=== PATIENT | male | born 1940 | race Caucasian/White ===

== ENCOUNTER 2016-05-09 13:17 | Outpatient (CLI) | payer MEDICARE, OTHER | END 2016-05-09 13:18 | disposition home or self-care (01) | DX: E16.1 Other hypoglycemia (principal) ==

== ENCOUNTER 2016-06-21 13:27 | Outpatient (CLI) | payer MEDICARE, OTHER | END 2016-06-21 23:59 | DX: R39.15 Urgency of urination (principal); R31.9 Hematuria, unspecified ==

== ENCOUNTER 2016-07-26 15:24 | Outpatient (CLI) | payer MEDICARE, OTHER | END 2016-07-26 15:25 | disposition critical access hospital (66) | LOC: EMS 15:24 | PROVIDERS: ATTEND Surgery | DX: S09.90XA Unspecified injury of head, initial encounter (principal); W18.12XA Fall from or off toilet with subsequent striking against object, initial encounter; Y93.E9 Activity, other interior property and clothing maintenance; Y92.002 Bathroom of unspecified non-institutional (private) residence as the place of occurrence of the external cause | CPT/HCPCS: A0425; A0427 ==

== ENCOUNTER 2016-07-26 15:39 | Emergency (ER) | payer MEDICARE, OTHER ==
[2016-07-26] MEDS ORDERED: ONDANSETRON 4 MG/2 ML VIAL ONE (15:57)
[2016-07-26] MEDS ORDERED: ONDANSETRON 4 MG/2 ML VIAL IVP STA (16:01)
[2016-07-26] MEDS ORDERED: ACETAMINOPHEN 325 MG TABLET PO STA (16:01)
[2016-07-26] MEDS ORDERED: ACETAMINOPHEN 325 MG TABLET PO ONE (16:02)
== END 2016-07-26 17:26 | disposition home or self-care (01) ==
DX: S09.90XA Unspecified injury of head, initial encounter (principal); W18.11XA Fall from or off toilet without subsequent striking against object, initial encounter; Y92.012 Bathroom of single-family (private) house as the place of occurrence of the external cause; E04.1 Nontoxic single thyroid nodule; I10 Essential (primary) hypertension; E78.00 Pure hypercholesterolemia, unspecified; I25.119 Atherosclerotic heart disease of native coronary artery with unspecified angina pectoris; Z95.1 Presence of aortocoronary bypass graft; I25.2 Old myocardial infarction; N40.0 Benign prostatic hyperplasia without lower urinary tract symptoms; K21.9 Gastro-esophageal reflux disease without esophagitis; Z79.82 Long term (current) use of aspirin
CPT/HCPCS: 70450; 72125; 96374; 99283; 99284; A9270

== ENCOUNTER 2016-10-04 14:35 | Outpatient (CLI) | payer MEDICARE, OTHER | END 2016-10-04 14:36 | disposition home or self-care (01) | LOC: LAB.WCP 14:35 | PROVIDERS: ATTEND Family Medicine | DX: E04.1 Nontoxic single thyroid nodule (principal) | CPT/HCPCS: 36415; 84443 ==

== ENCOUNTER 2016-10-06 14:31 | Outpatient (CLI) | payer MEDICARE, OTHER ==
--- NOTE | 2016-10-07 09:35 | Ultrasound Report ---
THYROID ULTRASOUND: 10/06/2016 CLINICAL INDICATION: Thyroid nodule on CT cervical spine. TECHNIQUE: Real-time scanning was performed with front office representative static images obtained. The right lobe measures 5.4 x 1.8 x 1.4 cm, and the left lobe measures 4.4 x 2.2 x 1.9 cm. The isthm us measures 3 mm. In the left lobe, there is a partially cystic nodule within avascular septations. No sonographically suspicious findings are appreciated. The cystic nodule measures 1.7 x 1.2 x 1.1 cm. By WOLFGANG criteria, it is a very low suspicion nodule, and fine needle aspiration is not recommende d at this size. No adenopathy is seen. IMPRESSION: PREDOMINANTLY CYSTIC NODULE IN THE LEFT LOBE OF THE THYROID, VERY LOW SUSPICION BY WOLFGANG Yue HOWARD. FINE NEEDLE ASPIRATION IS NOT RECOMMENDED PER WOLFGANG GUIDELINES. JOB #: [id number] EXT JOB #:[id number]
== END 2016-10-06 14:32 | disposition home or self-care (01) ==
LOC: DI 14:31
PROVIDERS: ATTEND Family Medicine
DX: E04.1 Nontoxic single thyroid nodule (principal)
CPT/HCPCS: 76536

== ENCOUNTER 2017-02-19 09:23 | Outpatient (CLI) | payer MEDICARE, OTHER | END 2017-02-19 09:24 | disposition home or self-care (01) | LOC: SC 09:23 | PROVIDERS: ATTEND Internal Medicine Pulmonary Disease | DX: G47.33 Obstructive sleep apnea (adult) (pediatric) (principal) | CPT/HCPCS: 99213; G0463; 99212 ==

== ENCOUNTER 2018-01-03 09:34 | Outpatient (CLI) | payer MEDICARE, OTHER ==
[2018-01-03 12:28] LABS: BASOPHILS % (AUTO) 0.5 %; EOSINOPHILS # (AUTO) 0.4 10^3/uL (0.0-0.7); EOSINOPHILS % (AUTO) 5.7 %; HGB - HEMOGLOBIN 15.8 g/dL (14.0-18.0); LYMPHOCYTES # (AUTO) 1.4 10^3/uL (1.5-3.5); LYMPHOCYTES % (AUTO) 19.7 %; MEAN CORPUSCULAR HEMOGLOBIN 33.5 pg (27.0-31.0); MEAN CORPUSCULAR HGB CONC 34.9 g/dL (32.0-36.0); MEAN CORPUSCULAR VOLUME 96.2 fL (80.0-94.0); MEAN PLATELET VOLUME 8.6 fL (7.4-11.4); MONOCYTES # (AUTO) 0.9 10^3/uL (0.0-1.0); MONOCYTES % (AUTO) 12.3 %; NEUTROPHILS # (AUTO) 4.3 10^3/uL (1.5-6.6); NEUTROPHILS % (AUTO) 61.8 %; PLT - PLATELET COUNT 143 10^3/uL (130-450); RED BLOOD COUNT 4.72 10^6/uL (4.70-6.10); RED CELL DISTRIBUTION WIDTH 13.7 % (12.0-15.0)
[2018-01-03 12:48] LABS: ALBUMIN 4.4 g/dL (3.2-5.5); ALBUMIN/GLOBULIN RATIO 1.8 (1.0-2.2); ALKALINE PHOSPHATASE 58 IU/L (42-121); ALT ALANINE AMINOTRANSFERASE 28 IU/L (10-60); AST ASPARTATE AMINOTRANSFERASE 35 IU/L (10-42); BILIRUBIN,TOTAL 0.7 mg/dL (0.2-1.0); BUN - BLOOD UREA NITROGEN 10 mg/dL (6-20); CARBON DIOXIDE - CO2 26 mmol/L (21-32); CHLORIDE 100 mmol/L (101-111); CHOL/HDL RATIO 3.7 (<5.0); CHOLESTEROL 131 mg/dL; GFR - MDRD 72 (>89); GLUCOSE 93 mg/dL (70-100); HDL CHOLESTEROL 35 mg/dL; LDL CHOLESTEROL,CALCULATED 64 mg/dL; LDL/HDL RATIO 1.8 (<3.6); SODIUM 135 mmol/L (135-145); TOTAL PROTEIN 6.9 g/dL (6.7-8.2); VLDL CHOLESTEROL 32 mg/dL
== END 2018-01-03 09:35 | disposition home or self-care (01) ==
LOC: LAB.WCP 09:34
PROVIDERS: ATTEND Family Medicine
DX: D64.9 Anemia, unspecified (principal); I25.10 Atherosclerotic heart disease of native coronary artery without angina pectoris
CPT/HCPCS: 36415; 80053; 80061; 83721; 84443; 85025

== ENCOUNTER → 2018-01-08 | Outpatient (CLI) | payer MEDICARE, OTHER ==
[2018-01-08 12:43] LABS: BASOPHILS % (AUTO) 0.3 %; EOSINOPHILS # (AUTO) 0.4 10^3/uL (0.0-0.7); EOSINOPHILS % (AUTO) 5.2 %; HGB - HEMOGLOBIN 15.8 g/dL (14.0-18.0); LYMPHOCYTES # (AUTO) 1.5 10^3/uL (1.5-3.5); LYMPHOCYTES % (AUTO) 19.8 %; MEAN CORPUSCULAR HEMOGLOBIN 33.5 pg (27.0-31.0); MEAN CORPUSCULAR HGB CONC 34.8 g/dL (32.0-36.0); MEAN CORPUSCULAR VOLUME 96.3 fL (80.0-94.0); MEAN PLATELET VOLUME 8.5 fL (7.4-11.4); MONOCYTES # (AUTO) 0.5 10^3/uL (0.0-1.0); MONOCYTES % (AUTO) 6.8 %; NEUTROPHILS % (AUTO) 67.9 %; PLT - PLATELET COUNT 143 10^3/uL (130-450); RED BLOOD COUNT 4.72 10^6/uL (4.70-6.10); RED CELL DISTRIBUTION WIDTH 13.6 % (12.0-15.0); WHITE BLOOD COUNT 7.4 x10^3/uL (4.8-10.8)
[2018-01-08 13:01] LABS: ALBUMIN 4.4 g/dL (3.2-5.5); ALBUMIN/GLOBULIN RATIO 1.8 (1.0-2.2); ALKALINE PHOSPHATASE 59 IU/L (42-121); ALT ALANINE AMINOTRANSFERASE 29 IU/L (10-60); AST ASPARTATE AMINOTRANSFERASE 33 IU/L (10-42); BILIRUBIN,TOTAL 0.8 mg/dL (0.2-1.0); BUN - BLOOD UREA NITROGEN 11 mg/dL (6-20); CALCIUM 9.3 mg/dL (8.5-10.3); CARBON DIOXIDE - CO2 28 mmol/L (21-32); CHLORIDE 98 mmol/L (101-111); CREATININE 0.9 mg/dL (0.6-1.2); GFR - MDRD 81 (>89); GLUCOSE 144 mg/dL (70-100); PREALBUMIN 25 mg/dL (18-45); SODIUM 135 mmol/L (135-145); TOTAL PROTEIN 6.9 g/dL (6.7-8.2)
[2018-01-08 13:09] LABS: CRP - C-REACTIVE PROTEIN < 1.0 mg/dL (0-1.0)
== END ==
LOC: LAB.WCP 08:00
PROVIDERS: ATTEND Family Medicine
DX: L08.89 Other specified local infections of the skin and subcutaneous tissue (principal); L03.116 Cellulitis of left lower limb; L97.322 Non-pressure chronic ulcer of left ankle with fat layer exposed
CPT/HCPCS: 36415; 80053; 84134; 85025; 85651; 86140

== ENCOUNTER 2018-04-01 10:42 | Outpatient (CLI) | payer MEDICARE, OTHER | END 2018-04-01 10:43 | disposition home or self-care (01) | LOC: SC 10:42 | PROVIDERS: ATTEND Nurse Practitioner Family | DX: G47.33 Obstructive sleep apnea (adult) (pediatric) (principal) | CPT/HCPCS: 99214; G0463; 99212 ==

== ENCOUNTER 2018-05-15 15:06 | Outpatient (CLI) | payer MEDICARE, OTHER | END 2018-05-15 15:07 | disposition EMS.NT | LOC: EMS 15:06 | PROVIDERS: ATTEND Surgery | DX: Z03.89 Encounter for observation for other suspected diseases and conditions ruled out (principal) ==

== ENCOUNTER 2018-06-06 19:05 | Observation (INO) | payer MEDICARE, OTHER ==
[2018-06-06 19:35] LABS: BASOPHILS # (AUTO) 0.1 10^3/uL (0.0-0.1); BASOPHILS % (AUTO) 0.8 %; EOSINOPHILS # (AUTO) 0.3 10^3/uL (0.0-0.7); EOSINOPHILS % (AUTO) 4.5 %; HGB - HEMOGLOBIN 15.1 g/dL (14.0-18.0); LYMPHOCYTES # (AUTO) 1.8 10^3/uL (1.5-3.5); LYMPHOCYTES % (AUTO) 23.8 %; MEAN CORPUSCULAR HEMOGLOBIN 33.4 pg (27.0-31.0); MEAN CORPUSCULAR HGB CONC 35.2 g/dL (32.0-36.0); MEAN PLATELET VOLUME 7.5 fL (7.4-11.4); MONOCYTES # (AUTO) 0.9 10^3/uL (0.0-1.0); MONOCYTES % (AUTO) 11.9 %; NEUTROPHILS # (AUTO) 4.5 10^3/uL (1.5-6.6); PLT - PLATELET COUNT 182 10^3/uL (130-450); RED BLOOD COUNT 4.52 10^6/uL (4.70-6.10); RED CELL DISTRIBUTION WIDTH 13.8 % (12.0-15.0); WHITE BLOOD COUNT 7.6 x10^3/uL (4.8-10.8)
[2018-06-06 19:43] LABS: ALBUMIN 4.2 g/dL (3.2-5.5); ALBUMIN/GLOBULIN RATIO 1.6 (1.0-2.2); BILIRUBIN,TOTAL 0.6 mg/dL (0.2-1.0); CALCIUM 8.9 mg/dL (8.5-10.3); CREATININE 0.9 mg/dL (0.6-1.2); TOTAL PROTEIN 6.9 g/dL (6.7-8.2)
--- NOTE | 2018-06-06 20:30 | XRAY Report ---
Reason: chest pain Procedure Date: 06/06/2018 Accession Number: [id number] / [id number] Procedure: XR - Chest 1 View X-Ray CPT Code: 37329 FULL RESULT: EXAM: CHEST RADIOGRAPHY EXAM DATE: 06/06/2018 08:15 PM. CLINICAL HISTORY: Chest pain. COMPARISON: 05/12/2014. TECHNIQUE: 1 view. FINDINGS: Lungs/Pleura: No focal opacities or vascular congestion. No pleural effusion or pneumothorax. Mediastinum: No cardiomegaly. Mildly tortuous calcified aorta. CABG. Moderate size hiatus hernia. Other: Median sternotomy. No acute fracture evident. IMPRESSION: 1. No acute cardiopulmonary findings radiographically. 2. CABG. 3. Prominent hiatus hernia. RADIA
--- NOTE | 2018-06-06 21:07 | ED Physician Documentation ---
PD HPI CHEST PAIN - Stated complaint Stated Complaint: CHEST PX - Chief complaint Chief Complaint: Cardiac - History obtained from History obtained from: Patient, Family - History of Present Illness Timing - onset: How many hours ago (3) Timing - onset during: Rest Timing - duration: Hours (3) Timing - details: Gradual onset, Waxing and waning Pain level max: 8 Pain level now: 1 Quality: Pressure, Tightness Location: Substernal, Right chest Radiation: Jaw Improved by: ASA Worsened by: No: Exertion, Inspiration, Eating, Movement, Palpation, Position Associated symptoms: Nausea. No: Shortness of air, Diaphoresis, Vomiting, Feeling faint / dizzy, General Weakness, Palpitations, Cough Similar symptoms before: Diagnosis ([facility] 2013[facility] Review of Systems Ten Systems: 10 systems reviewed and negative Constitutional: denies: Fever, Chills Throat: denies: Sore throat Respiratory: denies: Cough, Wheezing GI: denies: Vomiting, Diarrhea Skin: denies: Rash Musculoskeletal: denies: Neck pain, Back pain Neurologic: denies: Headache PD PAST MEDICAL HISTORY - Past Medical History Cardiovascular: Hypertension, High cholesterol, Angina, [place] GI: GERD : Benign prostate hypertrophy HEENT: Chronic sinusitis Psych: Depression Musculoskeletal: Chronic back pain Derm: Rosacea - Past Surgical History Past Surgical History: Yes General: Cholecystectomy, Colonoscopy Ortho: Rotator cuff repair Cardiovascular: CABG, Coronary stent - Present Medications Home Medications: Ambulatory Orders Medication Instructions Recorded Confirmed Amitriptyline HCl 20 mg PO BID 03/28/13 12/04/17 Atorvastatin Calcium 40 mg PO BID 03/28/13 12/04/17 Citalopram [CeleXA] 40 mg PO DAILY 03/28/13 12/04/17 Flunisolide 1 spray NS BID 03/28/13 12/04/17 Folic Acid 2.4 mg PO DAILY 03/28/13 12/04/17 Omeprazole 20 mg PO DAILY 03/28/13 12/04/17 Primidone [Mysoline] 300 mg PO DAILY 03/28/13 12/04/17 Metoprolol Tartrate [Lopressor] 12.5 mg PO BID 04/28/14 12/04/17 Aspirin [Aspir 81] 81 mg PO DAILY 10/13/14 12/04/17 Bupropion HCl [Bupropion HCl Sr] 150 mg PO BID 10/13/14 12/04/17 Cholecalciferol (Vitamin D3) 2,000 unit PO DAILY 10/13/14 12/04/17 [Vitamin D] Ferrous Sulfate 325 mg PO DAILYWM 10/13/14 12/04/17 Potassium Chloride [Micro-K] 10 meq PO DAILY 10/13/14 12/04/17 Levothyroxine [Synthroid] 25 mcg PO DAILY 11/10/14 12/04/17 Tamsulosin [Flomax] 0.4 mg PO DAILY 07/26/16 12/04/17 Linezolid [Zyvox] 600 mg PO BID 12/12/16 12/04/17 - Allergies Allergies/Adverse Reactions: Allergies Allergy/AdvReac Type Severity Reaction Status Date / Time codeine AdvReac Intermediate Edema Verified 06/06/18 19:12 - Social History Does the pt smoke?: No Smoking Status: Never smoker Does the pt drink ETOH?: No Does the pt have substance abuse?: No - Immunizations Immunizations are current?: Yes - POLST Patient has POLST: No PD ED PE NORMAL - Vitals Vital signs reviewed: Yes - General General: Alert and oriented X 3, No acute distress, Well developed/nourished - HEENT HEENT: Moist mucous membranes - Neck Neck: Supple, no meningeal sign - Cardiac Cardiac: RRR, Strong equal pulses - Respiratory Respiratory: No respiratory distress, Clear bilaterally - Abdomen Abdomen: Soft, Non tender, Non distended - Derm Derm: Warm and dry - Extremities Extremities: No edema, No calf tenderness / cord - Neuro Neuro: Alert and oriented X 3 - Psych Psych: Normal mood, Normal affect Results - Vitals Vitals: Vital Signs - 24 hr 06/06/18 06/06/18 06/06/18 19:08 19:53 20:15 Temperature 36.8 C 36.5 C 36.5 C Heart Rate 59 L 72 72 Respiratory 20 13 13 Rate Blood Pressure 122/79 110/68 106/63 O2 Saturation 95 94 93 06/06/18 06/06/18 20:51 21:48 Temperature 36.5 C 36.6 C Heart Rate 72 70 Respiratory 16 14 Rate Blood Pressure 101/69 112/75 O2 Saturation 95 96 Oxygen O2 Source Room air - EKG (time done) 1917 Rate: Rate (enter#) (98) Rhythm: NSR Intervals: Normal SD, RBBB Ischemia: Other (no STEMI) - Labs Labs: Laboratory Tests 06/06/18 06/06/18 06/06/18 19:23 19:23 19:23 WBC 7.6 RBC 4.52 L Hgb 15.1 Hct 42.9 MCV 95.0 H MCH 33.4 H MCHC 35.2 RDW 13.8 Plt Count 182 MPV 7.5 Neut # (Auto) 4.5 Lymph # (Auto) 1.8 [place] # (Auto) 0.9 Eos # (Auto) 0.3 Baso # (Auto) 0.1 Absolute Nucleated RBC 0.00 Nucleated RBC % 0.0 Sodium 135 Potassium 3.6 Chloride 100 L Carbon Dioxide 25 Anion Gap 10.0 BUN 16 Creatinine 0.9 Estimated GFR (MDRD) 81 L Glucose 112 H Calcium 8.9 Total Bilirubin 0.6 AST 32 ALT 32 Alkaline Phosphatase 73 Troponin I < 0.04 Total Protein 6.9 Albumin 4.2 Globulin 2.7 Albumin/Globulin Ratio 1.6 Lipase 30 - Rads (name of study) cxr Radiology: Prelim report reviewed, EMP read contemporaneously, See rad report (No acute cardiopulmonary findings radiographically. . CABG. . Prominent hiatus hernia. ) PD MEDICAL DECISION MAKING - ED course Complexity details: reviewed results, re-evaluated patient, considered differential (No ST elevation CA, no aortic dissection, no PE, no tension pneumothorax, no aortic aneurysm), d/w patient, d/w family, d/w [employer] consultant ED course: 77-year-old male presents to the emergency department with Chest pain. Had a quadruple bypass in 2013. Sees cardiology in [place]. Asymptomatic here. Initial set of troponins is negative. Will place in observation for rule out CA. Discussed the case with the hospitalist, Dr. Stratton who accepts. This document was made in part using voice recognition software. While efforts are made to proofread this document, sound alike and grammatical errors may o ccur. Patient took aspirin and nitro prior to arrival Departure - Departure Disposition: ED Place in Observation Clinical Impression: Chest pain Qualifiers: Chest pain type: unspecified Qualified Code(s): R07.9 - Chest pain, unspecified Condition: Stable Discharge Date/Time: 06/06/18 22:55
[2018-06-06] MEDS ORDERED: SODIUM CHLORIDE FLUSH 0.9% 10 ML SYRINGE IVP PRN (22:03)
[2018-06-06] MEDS ORDERED: HYDROcod/ACETAM 5/325 MG TABLET PO PRN (22:03)
[2018-06-06] MEDS ORDERED: NITROGLYCERIN SL 0.4 MG TABLET SL PRN (22:08)
--- NOTE | 2018-06-06 22:15 | HISTORY & PHYSICAL EXAMINATION ---
Chief Complaint - Chief Complaint Chief Complaint: Right anterior chest wall pain with jaw clauudication Chest Pain Admission HPI - Admitted From Admitted from: ED - History Obtained From Records Reviewed: RN notes reviewed History obtained from: Patient, Other (Spouse) - History of Present Illness HPI Comment/Other: This is a pleasant 77-year-old with a significant cardiovascular history of coronary artery disease with quadruple bypass in 2013 at [facility] for which his primary catalyst operator chief is Dr. 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 Patient had mentioned that he had been taking his old nit roglycerin that almost tasted like "rocks" and may have been . There was no worsening on exertion inspiration eating movement or position and did relieve itself in the ED after patient had taken his own aspirin at home. Patient has a history of coronary artery disease with the previous Diagnosis (Quad bypass in 2013, sees. Dr. Christian [facility]). 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 Patient had one year of seeing the MAC service here in 3 years at [place]. Patient's primary plastic surgeon now is Dr. Plasencia who oversees his chronic vascular ulcer to the left lower extremity. Patient was told by a vascular surgeon in [place] that he did not want to perform bypass on patient. In the ED patient had a CBC was which is essentially normal with macrocytosis and electrolytes unremarkable with good renal function and a glucose of 112. First troponin <0.04. Patient's vital signs were hemodynamically stable. Patient is scheduled to see his primary catalyst operator chief Dr. Antwan Christian in September and does not recall prior echo or stress testing. PMH/PSH - Past Medical History Cardiovascular: positive: Hypertension, High cholesterol, Angina, [place] GI: positive: GERD : positive: Benign prostate hypertrophy HEENT: positive: Chronic sinusitis Psych: positive: Depression Musculoskeletal: positive: Chronic back pain Derm: positive: Rosacea MRSA Hx?: No - Past Surgical History General: positive: Cholecystectomy, Colonoscopy Ortho: positive: Rotator cuff repair Cardiovascular: positive: CABG, Coronary stent Social & Family Hx - Social History Does the pt smoke?: No Smoking Status: Never smoker Does the pt drink ETOH?: No Does the pt have substance abuse?: No - POLST Patient has POLST: No Meds/Allgy - Home Medications Home Medications: Ambulatory Orders Medication Instructions Recorded Confirmed Amitriptyline HCl 20 mg PO BID 03/28/13 12/04/17 Atorvastatin Calcium 40 mg PO BID 03/28/13 12/04/17 Citalopram [CeleXA] 40 mg PO DAILY 03/28/13 12/04/17 Flunisolide 1 spray NS BID 03/28/13 12/04/17 Folic Acid 2.4 mg PO DAILY 03/28/13 12/04/17 Omeprazole 20 mg PO DAILY 03/28/13 12/04/17 Primidone [Mysoline] 300 mg PO DAILY 03/28/13 12/04/17 Metoprolol Tartrate [Lopressor] 12.5 mg PO BID 04/28/14 12/04/17 Aspirin [Aspir 81] 81 mg PO DAILY 10/13/14 12/04/17 Bupropion HCl [Bupropion HCl Sr] 150 mg PO BID 10/13/14 12/04/17 Cholecalciferol (Vitamin D3) 2,000 unit PO DAILY 10/13/14 12/04/17 [Vitamin D] Ferrous Sulfate 325 mg PO DAILYWM 10/13/14 12/04/17 Potassium Chloride [Micro-K] 10 meq PO DAILY 10/13/14 12/04/17 Levothyroxine [Synthroid] 25 mcg PO DAILY 11/10/14 12/04/17 Tamsulosin [Flomax] 0.4 mg PO DAILY 07/26/16 12/04/17 Linezolid [Zyvox] 600 mg PO BID 12/12/16 12/04/17 - Allergies Allergies/Adverse Reactions: Allergies Allergy/AdvReac Type Severity Reaction Status Date / Time codeine AdvReac Intermediate Edema Verified 06/06/18 19:12 Review of Systems - All Other Systems All Other Systems: reports: Reviewed and negative Prior Level of Functionality: Patient is ambulatory and performs home ADLs and is independent Exam - Vital Signs Reviewed Vital Signs: Yes Vital Signs: Vital Signs x48h Temp Pulse Resp BP Pulse Ox 06/06/18 21:48 36.6 C 70 14 112/75 96 06/06/18 20:51 36.5 C 72 16 101/69 95 06/06/18 20:15 36.5 C 72 13 106/63 93 06/06/18 19:53 36.5 C 72 13 110/68 94 06/06/18 19:08 36.8 C 59 L 20 122/79 95 - Physical Exam General Appearance: positive: No acute distress, Alert Eyes Bilateral: positive: Normal inspection, PERRL, EOMI ENT: positive: ENT inspection nml, Pharynx nml, No signs of dehydration Neck: positive: Nml inspection, Thyroid nml, No JVD, Trachea midline. negative: Thyromegaly Respiratory: positive: Chest non-tender, No respiratory distress, Breath sounds nml Cardiovascular: positive: Regular rate & rhythm, No murmur, No gallop. negative: JVD present, Gallop/S4, Decreased pulse(s) Peripheral Pulses: positive: 1+, Other (Bilateral dorsalis pedis. Patient has Catrachito wrap to the left lower extremity) Abdomen: positive: Non-tender, No organomegaly, Nml bowel sounds, No distention. negative: Tenderness Skin: positive: Color nml, No rash, Warm, Dry Extremities: positive: Full ROM, Other (Patient has an Catrachito wrap to left ankle primarily over the left lateral malleolus.) Neurologic/Psychiatric: positive: Oriented x3, CN's nml (2-12) Results - Lab Results Lab results reviewed: Yes Fish Bones: 06/06/18 19:23 06/06/18 19:23 Other Lab Results: Lab Results x24hrs 06/06/18 06/06/18 06/06/18 Range/Units 19:23 19:23 19:23 WBC 7.6 (4.8-10.8) x10^3/uL RBC 4.52 L (4.70-6.10) 10^6/uL Hgb 15.1 (14.0-18.0) g/dL Hct 42.9 (42.0-52.0) % MCV 95.0 H (80.0-94.0) fL MCH 33.4 H (27.0-31.0) pg MCHC 35.2 (32.0-36.0) g/dL RDW 13.8 (12.0-15.0) % Plt Count 182 (130-450) 10^3/uL MPV 7.5 (7.4-11.4) fL Neut # (Auto) 4.5 (1.5-6.6) 10^3/uL Lymph # (Auto) 1.8 (1.5-3.5) 10^3/uL [place] # (Auto) 0.9 (0.0-1.0) 10^3/uL Eos # (Auto) 0.3 (0.0-0.7) 10^3/uL Baso # (Auto) 0.1 (0.0-0.1) 10^3/uL Absolute Nucleated RBC 0.00 x10^3/uL Nucleated RBC % 0.0 /100WBC Sodium 135 (135-145) mmol/L Potassium 3.6 (3.5-5.0) mmol/L Chloride 100 L (101-111) mmol/L Carbon Dioxide 25 (21-32) mmol/L Anion Gap 10.0 (6-13) BUN 16 (6-20) mg/dL Creatinine 0.9 (0.6-1.2) mg/dL Estimated GFR (MDRD) 81 L (>89) Glucose 112 H (70-100) mg/dL Calcium 8.9 (8.5-10.3) mg/dL Total Bilirubin 0.6 (0.2-1.0) mg/dL AST 32 (10-42) IU/L ALT 32 (10-60) IU/L Alkaline Phosphatase 73 (42-121) IU/L Troponin I < 0.04 (<0.49) ng/mL Total Protein 6.9 (6.7-8.2) g/dL Albumin 4.2 (3.2-5.5) g/dL Globulin 2.7 (2.1-4.2) g/dL Albumin/Globulin Ratio 1.6 (1.0-2.2) Lipase 30 (22-51) U/L - Diagnostic Imaging Results Diagnostic Imaging Results: positive: Final report reviewed (Chest x-ray shows CABG with prominent hiatal hernia) - EKG Results EKG Interpreted Independently: Yes EKG Comparison: positive: Unchanged from prior EKG EKG Findings: EKG shows a sinus rhythm at 70 bpm with right bundle branch block and probable left axis deviation CP/CHF Plan - Echo Plan to order an echo?: No - Plan Patient Problems: All Active Problems Advanced care planning/counseling discussion (Acute) CAD (coronary artery disease) (Acute) Chest pain (Acute) HTN (hypertension) (Acute) Hiatal hernia (Acute) Hx of CABG (Acute) PVD (peripheral vascular disease) (Acute) Peripheral vascular disease of lower extremity with ulceration (Acute) Chest pain (Acute) Fall from or off toilet with subsequent striking against object, initial encounter (Acute) Injury of head and neck (Acute) Pneumonia (Acute) Thyroid nodule (Acute) Unstable angina (Acute) Plan: We will admit the patient to telemetry under observation. We will obtain 3 sets of cardiac enzymes. Patient with unknown prior echocardiogram and/or stress test however has an appointment to see his primary catalyst operator chief at [facility] Dr. Antwan Christian in September of this year. Patient has significant coronary artery disease with a quadruple bypass surgery in 2013 with hypertension hyperlipidemia to resume home meds, fasting lipid panel in the morning, resume aspirin and statin, nitroglycerin as needed. Patient likely had nitroglycerin which when he took it at the time did not appear to work and presenting with anginal type symptoms. Currently patient has no changes or abnormalities of EKG or on telemetry and is chest pain-free currently. Would obtain wound care consult for chronic left lateral malleolar nonhealing vascular ulcer which has been seen in [place] by Dr. Plasencia plastic surgeon as well as has had [facility] service seen patient and is currently receiving treatment in [place]. This has been ongoing for approximately 4 years. Patient likely would require a Fem-pop bypass however vascular surgeon in [place] did not want to operate on patient currently. Medical management for patient's existing chronic peripheral vascular disease. Patient's nonhealing vascular ulcer which is chronic was present on admission. We will continue to medically manage. Beta-blockade to continue along with symptomatic treatment. Patient remains a full code and discussion of patient's current medical condition as it pertains of his cardiovascular disease management and trajectory of illness was discussed at length and would update POLST and [employer]. GI/DVT ppx to be initiated. Code Status: FULL Core Measures - Anticipated LOS I expect patient to be DC'd or transferred within 96 hours.: Yes - Issues Hospital Issues and Management Plan: Obtaining 3 sets of cardiac enzymes, consider echocardiogram however patient will see primary catalyst operator chief in September. Patient essentially is chest pain-free and will medically manage for now. - DVT/VTE - Prophylaxis VTE/DVT Device ordered at admit?: Yes VTE/DVT Prophylaxis med ordered at admit?: No Not Ordered - Medical Reason: Not indicated - Stroke - Rehab Assessment Rehab services assessment to be ordered?: No Not Ordered - Medical Reason: Not indicated - AMI - Statin at Admit Aspirin Prescribed on Admit: Yes
[2018-06-06] MEDS ORDERED: LACTATED RINGERS 1,000 ML IV SCH (23:00)
[2018-06-07] MEDS: SODIUM CHLORIDE FLUSH 0.9% 10 ML SYRINGE IVP SCH ×2 (00:56→10:02)
[2018-06-07] MEDS ORDERED: ACETAMINOPHEN 325 MG TABLET PO PRN (02:03)
[2018-06-07 05:12] LABS: ALBUMIN 3.8 g/dL (3.2-5.5); BUN - BLOOD UREA NITROGEN 15 mg/dL (6-20); CALCIUM 8.8 mg/dL (8.5-10.3); CARBON DIOXIDE - CO2 24 mmol/L (21-32); CHLORIDE 104 mmol/L (101-111); CHOL/HDL RATIO 4.3 (<5.0); CHOLESTEROL 126 mg/dL; CREATININE 0.9 mg/dL (0.6-1.2); GFR - MDRD 81 (>89); GLUCOSE 109 mg/dL (70-100); HDL CHOLESTEROL 29 mg/dL; LDL CHOLESTEROL,CALCULATED 55 mg/dL; LDL/HDL RATIO 1.9 (<3.6); MAGNESIUM 1.7 mg/dL (1.7-2.8); PHOSPHORUS 3.5 mg/dL (2.5-4.6); SODIUM 138 mmol/L (135-145); VLDL CHOLESTEROL 42 mg/dL
[2018-06-07 05:19] LABS: BASOPHILS % (AUTO) 0.5 %; EOSINOPHILS # (AUTO) 0.4 10^3/uL (0.0-0.7); EOSINOPHILS % (AUTO) 5.2 %; HGB - HEMOGLOBIN 14.1 g/dL (14.0-18.0); LYMPHOCYTES # (AUTO) 1.9 10^3/uL (1.5-3.5); LYMPHOCYTES % (AUTO) 27.2 %; MEAN CORPUSCULAR HEMOGLOBIN 33.2 pg (27.0-31.0); MEAN CORPUSCULAR HGB CONC 34.7 g/dL (32.0-36.0); MEAN CORPUSCULAR VOLUME 95.6 fL (80.0-94.0); MEAN PLATELET VOLUME 7.9 fL (7.4-11.4); MONOCYTES # (AUTO) 0.9 10^3/uL (0.0-1.0); MONOCYTES % (AUTO) 12.6 %; NEUTROPHILS # (AUTO) 3.8 10^3/uL (1.5-6.6); NEUTROPHILS % (AUTO) 54.5 %; PLT - PLATELET COUNT 148 10^3/uL (130-450); RED BLOOD COUNT 4.25 10^6/uL (4.70-6.10); RED CELL DISTRIBUTION WIDTH 13.8 % (12.0-15.0); WHITE BLOOD COUNT 6.9 x10^3/uL (4.8-10.8)
[2018-06-07] MEDS ORDERED: FERROUS SULFATE 325 MG TABLET PO SCH (08:00)
--- NOTE | 2018-06-07 08:39 | Discharge Plan ---
Discharge Plan Disposition: Home, Self Care Condition: Good Prescriptions: Nitroglycerin [Nitrostat] 0.4 mg SL Q4HR PRN #10 tablet PRN Reason: Chest Pain Diet: Cardiac Activity Restrictions: No Restrictions Shower Restrictions: No Additional Instructions or Follow Up instructions: You were admitted for chest pain. Your EKG was unchanged from previous ones and your troponins were negative. You are being sent home with a new prescription for nitroglycerin. An appointment has been made for you at your cardiology office in [place]. Your appointment is with Nurse Practitioner Tyrell Frazier. Appointment time is 215pm with a check in time of 200pm. If you develop chest pain unrelieved by nitroglycerin, please present to the nearest ER for medical evaluation. Nitroglycerin prescription was sent to [facility] Smoking: If you smoke, Please STOP! Call for help. Follow-up with: Gabriel Rivera MD [Primary Care Provider] -
[2018-06-07 08:42] VITALS: BP 147/93
[2018-06-07] MEDS ORDERED: TAMSULOSIN 0.4 MG CAPSULE PO SCH (09:00)
[2018-06-07] MEDS ORDERED: METOPROLOL TARTRATE 25 MG TABLET PO SCH (09:00)
[2018-06-07] MEDS ORDERED: ASPIRIN EC 81 MG TABLET PO SCH (09:00)
[2018-06-07] MEDS ORDERED: METOPROLOL TARTRATE 12.5 MG PO SCH (09:00)
[2018-06-07] MEDS ORDERED: buPROPion SR 150 MG TABLET PO SCH (09:00)
[2018-06-07] MEDS ORDERED: CITALOPRAM HYDROBROMIDE 20 MG TABLET PO SCH (09:00)
[2018-06-07] MEDS ORDERED: CHOLECALCIFEROL 1,000 UNIT TABLET PO SCH (09:00)
[2018-06-07] MEDS ORDERED: AMITRIPTYLINE 10 MG TABLET PO SCH ×2 (09:00→21:00)
[2018-06-07] MEDS ORDERED: POLYETHYLENE GLYCOL 3350 17 GM PACKET PO SCH (09:00)
[2018-06-07] MEDS ORDERED: FAMOTIDINE 20 MG TABLET PO SCH (09:00)
[2018-06-07] MEDS ORDERED: ATORVASTATIN 40 MG TABLET PO SCH ×2 (09:00→21:00)
--- NOTE | 2018-06-07 09:05 | DISCHARGE SUMMARY ---
Discharge Summary Admit Date: 06/06/18 Discharge Date: 06/07/18 Discharging Provider: Darlin AGOSTO Primary Care Provider: Dr. Gabriel Rivera Code Status: Attempt Resuscitation Condition at Discharge: Good Discharge Disposition: 01 Home, Self Care - DIAGNOSES Admission Diagnoses: Chest pain CAD (coronary artery disease) Hx of CABG HTN (hypertension) PVD (peripheral vascular disease) Peripheral vascular disease of lower extremity with ulceration Discharge Diagnoses with Status of Each Condition: Chest pain, improved/intermittent CAD (coronary artery disease), stable Hx of CABG, stable HTN (hypertension), stable PVD (peripheral vascular disease), stable Peripheral vascular disease of lower extremity with ulceration, stable - HPI History of Present Illness: As per Dr. 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 Patient had mentioned that he had been taking his old nitroglycerin that almost tasted like "rocks" and may have been . There was no worsening on exertion inspiration eating movement or position and did relieve itself in the ED after patient had taken his own aspirin at home. Patient has a history of coronary artery disease with the previous Diagnosis (Quad bypass in 2013, sees. Dr. Christian [facility]). 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 Patient had one year of seeing the MAC service here in 3 years at [place]. Patient's primary plastic surgeon now is Dr. Plasencia who oversees his chronic vascular ulcer to the left lower extremity. Patient was told by a vascular surgeon in [place] that he did not want to perform bypass on patient. In the ED patient had a CBC was which is essentially normal with macrocytosis and electrolytes unremarkable with good renal function and a glucose of 112. First troponin <0.04. Patient's vital signs were hemodynamically stable. Patient is scheduled to see his primary logging tractor operator Dr. Antwan Christian in September and does not recall prior echo or stress testing.' - CONSULTS | PROCEDURES Consultations: None - HOSPITAL COURSE Hospital Course: Patient was admitted to the hospital for observation for chest pain. Serial troponins came back negative. EKG unchanged from previous. Patient reported chest pain overnight at 3 am, but describes it as less severe than the chest pain he had upon admission. Patient admits to chest pain roughly 1 week ago, although he did not report this to anyone. Prior to this episode and last week, patient has been chest pain free. Patient did not wish to undergo further testing at [facility]. An appointment has been made for the patient at his logging tractor operator office with Tyrell Frazier NP on SundayJune 10 at 215pm. He was discharged with a new prescription for nitroglycerin. - ALLERGIES Allergies/Adverse Reactions: Allergies Allergy/AdvReac Type Severity Reaction Status Date / Time codeine AdvReac Intermediate Edema Verified 06/06/18 19:12 - MEDICATIONS Home Medications: Ambulatory Orders Medication Instructions Recorded Confirmed Amitriptyline HCl 40 mg PO QPM 03/28/13 06/07/18 Atorvastatin Calcium 40 mg PO QPM 03/28/13 06/07/18 Citalopram [CeleXA] 40 mg PO DAILY 03/28/13 06/07/18 Flunisolide 1 spray NS BID 03/28/13 06/07/18 Omeprazole 20 mg PO DAILY 03/28/13 06/07/18 Primidone [Mysoline] 50 mg PO 0800,1200 03/28/13 06/07/18 Metoprolol Tartrate [Lopressor] 12.5 mg PO BID 04/28/14 06/07/18 Aspirin [Aspir 81] 81 mg PO DAILY 10/13/14 06/07/18 Bupropion HCl [Bupropion HCl Sr] 150 mg PO BID 10/13/14 06/07/18 Cholecalciferol (Vitamin D3) 1,000 unit PO DAILY 10/13/14 06/07/18 [Vitamin D] Ferrous Sulfate 325 mg PO DAILYWM 10/13/14 06/07/18 Potassium Chloride [Micro-K] 10 meq PO DAILY 10/13/14 06/07/18 Levothyroxine [Synthroid] 25 mcg PO DAILY 11/10/14 06/07/18 Tamsulosin [Flomax] 0.4 mg PO DAILY 07/26/16 06/07/18 Folic Acid 2.5 mg PO DAILY 06/07/18 06/07/18 Folic Acid 2.5 mg PO DAILY tablet 06/07/18 Lisinopril 10 mg PO DAILY 06/07/18 06/07/18 Nitroglycerin [Nitrostat] 0.4 mg SL Q4HR PRN #10 tablet 06/07/18 Primidone [Mysoline] 100 mg PO QPM 06/07/18 06/07/18 - PHYSICAL EXAM AT DISCHARGE Physical Exam Other/Comments: General Appearance: No acute distress, Alert Eyes Bilateral: Normal inspection, PERRL, EOMI ENT: ENT inspection nml, Pharynx nml, No signs of dehydration Neck: Nml inspection, Thyroid nml, No JVD, Trachea midline. No thyromegaly Respiratory: Chest non-tender, No respiratory distress, Breath sounds nml Cardiovascular: Regular rate & rhythm, No murmur, No gallop. Peripheral Pulses: 1+, Other (Bilateral dorsalis pedis. Patient has Catrachito wrap to the left lower extremity) Abdomen: Non-tender, No organomegaly, Nml bowel sounds, No distention. Skin: Color nml, No rash, Warm, Dry Extremities: Full ROM, Other (Patient has an Catrachito wrap to left ankle primarily over the left lateral malleolus.) Neurologic/Psychiatric: positive: Oriented x3, CN's nml (2-12) - LABS Result Diagrams: 06/07/18 04:40 06/07/18 04:40 Other Lab Results: Laboratory Tests 06/06/18 06/06/18 06/06/18 19:23 19:23 19:23 WBC 7.6 RBC 4.52 L Hgb 15.1 Hct 42.9 MCV 95.0 H MCH 33.4 H MCHC 35.2 RDW 13.8 Plt Count 182 MPV 7.5 Neut # (Auto) 4.5 Lymph # (Auto) 1.8 [place] # (Auto) 0.9 Eos # (Auto) 0.3 Baso # (Auto) 0.1 Absolute Nucleated RBC 0.00 Nucleated RBC % 0.0 Sodium 135 Potassium 3.6 Chloride 100 L Carbon Dioxide 25 Anion Gap 10.0 BUN 16 Creatinine 0.9 Estimated GFR (MDRD) 81 L Glucose 112 H Calcium 8.9 Phosphorus Magnesium Total Bilirubin 0.6 AST 32 ALT 32 Alkaline Phosphatase 73 Troponin I < 0.04 Total Protein 6.9 Albumin 4.2 Globulin 2.7 Albumin/Globulin Ratio 1.6 Triglycerides Cholesterol LDL Cholesterol, Calc VLDL Cholesterol HDL Cholesterol LDL/HDL Ratio Cholesterol/HDL Ratio Lipase 30 06/06/18 06/07/18 06/07/18 23:45 04:40 04:40 WBC 6.9 RBC 4.25 L Hgb 14.1 Hct 40.6 L MCV 95.6 H MCH 33.2 H MCHC 34.7 RDW 13.8 Plt Count 148 MPV 7.9 Neut # (Auto) 3.8 Lymph # (Auto) 1.9 [place] # (Auto) 0.9 Eos # (Auto) 0.4 Baso # (Auto) 0.0 Absolute Nucleated RBC 0.00 Nucleated RBC % 0.0 Sodium Potassium Chloride Carbon Dioxide Anion Gap BUN Creatinine Estimated GFR (MDRD) Glucose Calcium Phosphorus Magnesium Total Bilirubin AST ALT Alkaline Phosphatase Troponin I < 0.04 < 0.04 Total Protein Albumin Globulin Albumin/Globulin Ratio Triglycerides Cholesterol LDL Cholesterol, Calc VLDL Cholesterol HDL Cholesterol LDL/HDL Ratio Cholesterol/HDL Ratio Lipase 06/07/18 04:40 WBC RBC Hgb Hct MCV MCH MCHC RDW Plt Count MPV Neut # (Auto) Lymph # (Auto) [place] # (Auto) Eos # (Auto) Baso # (Auto) Absolute Nucleated RBC Nucleated RBC % Sodium 138 Potassium 3.5 Chloride 104 Carbon Dioxide 24 Anion Gap 10.0 BUN 15 Creatinine 0.9 Estimated GFR (MDRD) 81 L Glucose 109 H Calcium 8.8 Phosphorus 3.5 Magnesium 1.7 Total Bilirubin AST ALT Alkaline Phosphatase Troponin I Total Protein Albumin 3.8 Globulin Albumin/Globulin Ratio Triglycerides 208 H Cholesterol 126 LDL Cholesterol, Calc 55 VLDL Cholesterol 42 HDL Cholesterol 29 L LDL/HDL Ratio 1.9 Cholesterol/HDL Ratio 4.3 Lipase - DIAGNOSTIC IMAGING Diagnostic Imaging Results: Final report reviewed Diagnostic Imaging Results Comments: 1-view CXR 06/06/2018: 1. No acute cardiopulmonary findings radiographically 2. CABG 3. Prominent hiatal hernia - FOLLOW UP Follow Up: Follow-up with cardiology office on Sunday as mentioned above Follow-up with PCP within 3-4 weeks - TIME SPENT Time Spent in Discharge (Minutes): 45
[2018-06-07] MEDS ORDERED: FLUNISOLIDE NS SCH (21:00)
[2018-06-08] MEDS ORDERED: FOLIC ACID 1 MG TABLET PO SCH (09:00)
== END 2018-06-07 10:47 | disposition home or self-care (01) ==
LOC: ED 19:05 → OBS 22:03
PROVIDERS: ADMIT Family Medicine; ATTEND Nurse Practitioner
DX: R07.89 Other chest pain (principal); I25.10 Atherosclerotic heart disease of native coronary artery without angina pectoris; I10 Essential (primary) hypertension; I73.9 Peripheral vascular disease, unspecified; L97.329 Non-pressure chronic ulcer of left ankle with unspecified severity; Z95.1 Presence of aortocoronary bypass graft; E78.5 Hyperlipidemia, unspecified; N40.0 Benign prostatic hyperplasia without lower urinary tract symptoms; K21.9 Gastro-esophageal reflux disease without esophagitis; K44.9 Diaphragmatic hernia without obstruction or gangrene; I25.2 Old myocardial infarction; J32.9 Chronic sinusitis, unspecified; Z79.82 Long term (current) use of aspirin
CPT/HCPCS: 36415; 71045; 80053; 80061; 80069; 83690; 83735; 84484; 85025; 93005; 96360; 96361; 99284; A9270; G0378; J7120; J8499; 83721

== ENCOUNTER 2019-03-11 13:56 | Emergency (ER) | payer MEDICARE, OTHER ==
[2019-03-11] MEDS ORDERED: cephALEXin 250 MG CAPSULE PO STA (14:30)
--- NOTE | 2019-03-11 14:33 | ED Physician Documentation ---
PD HPI LOWER EXT INJURY - Stated complaint Stated Complaint: L FOOT TOE PX/PURPLE TOES - Chief complaint Chief Complaint: Ext Problem - History obtained from History obtained from: Patient, Family - History of Present Illness PD HPI LOW EXT INJURY LOCATION: Left (78-year-old gentleman with long history of vascular disease, saw vascular surgeon a couple of years ago who did not recommend any intervention. He has a longstanding wound on the left heel. More recently he has a wound between the second and third toes of the left foot with some discoloration of those toes.) Review of Systems Constitutional: denies: Fever, Chills GI: denies: Abdominal Pain, Nausea, Vomiting PD PAST MEDICAL HISTORY - Past Medical History Cardiovascular: Hypertension, High cholesterol, Angina, [place] GI: GERD : Benign prostate hypertrophy HEENT: Chronic sinusitis Psych: Depression Musculoskeletal: Chronic back pain Derm: Rosacea - Past Surgical History Past Surgical History: Yes General: Cholecystectomy, Colonoscopy Ortho: Rotator cuff repair Cardiovascular: CABG, Coronary stent - Present Medications Home Medications: Ambulatory Orders Medication Instructions Recorded Confirmed Amitriptyline HCl 40 mg PO QPM 03/28/13 01/07/19 Atorvastatin Calcium 40 mg PO QPM 03/28/13 01/07/19 Citalopram [CeleXA] 40 mg PO DAILY 03/28/13 01/07/19 Flunisolide 1 spray NS BID 03/28/13 01/07/19 Omeprazole 20 mg PO DAILY 03/28/13 01/07/19 Primidone [Mysoline] 50 mg PO 0800,1200 03/28/13 01/07/19 Metoprolol Tartrate [Lopressor] 12.5 mg PO BID 04/28/14 01/07/19 Aspirin [Aspir 81] 81 mg PO DAILY 10/13/14 01/07/19 Bupropion HCl [Bupropion HCl Sr] 150 mg PO BID 10/13/14 01/07/19 Cholecalciferol (Vitamin D3) 1,000 unit PO DAILY 10/13/14 01/07/19 [Vitamin D] Ferrous Sulfate 325 mg PO DAILYWM 10/13/14 01/07/19 Potassium Chloride [Micro-K] 10 meq PO DAILY 10/13/14 01/07/19 Levothyroxine [Synthroid] 25 mcg PO DAILY 11/10/14 01/07/19 Tamsulosin [Flomax] 0.4 mg PO DAILY 07/26/16 01/07/19 Folic Acid 2.5 mg PO DAILY 06/07/18 01/07/19 Folic Acid 2.5 mg PO DAILY tablet 06/07/18 01/07/19 Lisinopril 5 mg PO DAILY 06/07/18 01/07/19 Nitroglycerin [Nitrostat] 0.4 mg SL Q4HR PRN #10 tablet 06/07/18 01/07/19 Isosorbide Mononitrate ER [Imdur] 30 mg PO DAILY 01/07/19 01/07/19 Oxybutynin Chloride 5 mg PO DAILY 01/07/19 01/07/19 Cephalexin [Keflex] 500 mg PO Q6H #28 capsule 03/11/19 - Allergies Allergies/Adverse Reactions: Allergies Allergy/AdvReac Type Severity Reaction Status Date / Time amoxicillin [From Augmentin] Allergy Unknown Verified 03/11/19 14:04 clavulanic acid Allergy Unknown Verified 03/11/19 14:04 [From Augmentin] codeine AdvReac Intermediate Edema Verified 03/11/19 14:04 - Social History Does the pt smoke?: No Smoking Status: Never smoker Does the pt drink ETOH?: No Does the pt have substance abuse?: No - Immunizations Immunizations are current?: Yes - POLST Patient has POLST: No PD ED PE NORMAL - Vitals Vital signs reviewed: Yes - General General: Alert and oriented X 3, No acute distress - Extremities Extremities: Other (I am not able to palpate pulses in the left foot, although he does have decent cap refill about 3 seconds distally. There is a ulcer on the third toe, medial side, no drainage but a mild foul smell. No cellulitis.) - Neuro Neuro: Alert and oriented X 3, Normal speech Results - Vitals Vitals: Vital Signs - 24 hr 03/11/19 14:04 Temperature 36.5 C Heart Rate 62 Respiratory 16 Rate Blood Pressure 127/80 O2 Saturation 98 Oxygen O2 Source Room air PD MEDICAL DECISION MAKING - ED course ED course: 78-year-old gentleman with known vascular disease presents with a toe infection, not severe at this juncture. Nothing to culture. Will place on Keflex but advised that he does need to see a vascular surgeon again. He does have dopplerable pulses so there is no urgency to this. Departure - Departure Disposition: 01 Home, Self Care Clinical Impression: Toe infection Instructions: Cellulitis Dc Prescriptions: Cephalexin [Keflex] 500 mg PO Q6H #28 capsule Comments: As discussed, I recommend seeing a vascular surgeon again for another evaluation. One option in [place] would be Dr. Sasha Abad, her phone number is [phone]. Return if worse.
[2019-03-11 15:34] VITALS: BP 112/68
== END 2019-03-11 15:15 | disposition home or self-care (01) ==
LOC: ED 13:56
DX: L08.9 Local infection of the skin and subcutaneous tissue, unspecified (principal); L97.529 Non-pressure chronic ulcer of other part of left foot with unspecified severity; I73.9 Peripheral vascular disease, unspecified; I10 Essential (primary) hypertension; Z79.82 Long term (current) use of aspirin
CPT/HCPCS: 99282; 99283; A9270

== ENCOUNTER 2019-07-10 16:53 | Outpatient (CLI) | payer MEDICARE, OTHER ==
--- NOTE | 2019-07-10 10:00 | SLEEP CARE CONSULTATION ---
Information from patient questionnaire entered by Brooklynn Beck. I have reviewed and concur with the information entered by Brooklynn Beck. This document represents the service I personally performed and the decisions made by me, Roseann Louise, RN, MSN, DENTAL DIRECTOR. History of Present Illness Service Date and Time: 07/10/2019929 Previous diagnosis: Mild, Obstructive Sleep Apnea-Hypopnea Syndrome AHI: 13.1 Reason for follow up: annual Equipment type: CPAP Equipment obtained from: [employer] Mask style: Nasal Backup mask available: Yes Last cushion change: 2 months CPAP Compliance Data - Data Reviewed with Patient Average duration of nightly device use: 6H 52M Compliance rate %: 88.9 Current pressure setting (cmH2O): 8-12 Humidity settin Heated hose settin Average residual AHI: 4.0 Average large leak: 5M 46S Subjective Patient concerns: denies: aerophagia, mask discomfort, air blowing in eyes, mask leak noise, condensation in mask/hose, nasal congestion, dry mouth, nose, throat, epistaxis, other Observed to snore while using device: No Current pressure setting perceived as: comfortable (uses the ramp at initiation) On therapy, patient: reports: sleeping better, awakening more refreshed, being more awake and alert during the day, more rested overall, other. denies: drowsiness while driving (does not drive ) Initial Oxford Sleepiness Scale score: 7 Allergies and Home Medications Home medication list reviewed: No (no changes) Review of Systems Review of systems same as previous: No (Angina episode in hospital 1 day/ toe amputated) Physical Exam Height: 6 ft 1 in Weight: 209 lb (home weight ) Body Mass Index: 27.6 BMI Classification: Overweight Impression and Plan 1. Obstructive Sleep Apnea-Hypopnea Syndrome, mild, with good treatment compliance and good apnea control. On CPAP therapy, the patient has better sleep quality and is more rested overall. Patient is pleased with benefit of treatment and plans on continuing. Symptoms to report for earlier follow up than scheduled reviewed. He is getting supplies as needed from [employer]. Since he has not changed his mask in 2 months, he was reminded he could change as often as every 2 weeks to maintain seal and comfort of mask. Currently mask is comfortable and minimal leaks overall but increased recently. Patient's apnea severity and rationale for treatment to reduce apnea, improve sleep quality and reduce hypertension , cardiovascular and cerebrovascular events was reviewed. * Continue CPAP pressure at 8-12 cmH2O * Notify me if snoring with mask or feeling that the pressure is too much or too little * Call this office if any problems using CPAP * Return for follow up in 1 year , or sooner if concerns arise Visit Type: Telehealth Phone (to minimized the risk of COVID 19 exposure, the patient has requested and consented to this visit and to bill insurance.) Patient Location: Home Location of Provider: Home Patient agrees and consents to this telehealth visit type: Yes Time Spent with Patient (minutes): 10 Provider Statement: I spent 100% of the Telehealth Phone Call with the patient with greater than 50% spent counseling the patient and coordination of care.
== END 2019-07-10 16:54 | disposition home or self-care (01) ==
LOC: SC 16:53
PROVIDERS: ATTEND Nurse Practitioner Family
DX: G47.33 Obstructive sleep apnea (adult) (pediatric) (principal); E66.3 Overweight; Z68.27 Body mass index [BMI] 27.0-27.9, adult

== ENCOUNTER 2020-07-22 14:05 | Outpatient (CLI) | payer MEDICARE, OTHER ==
--- NOTE | 2020-07-22 14:52 | SLEEP CARE CONSULTATION ---
Information from patient questionnaire entered by Sasha Heller. I have reviewed and concur with the information entered by Sasha Heller. This document represents the service I personally performed and the decisions made by , Yara Lanza ARNP. History of Present Illness Service Date and Time: 07/22/2020 1405 Previous diagnosis: Mild, Obstructive Sleep Apnea-Hypopnea Syndrome AHI: 13.1 (in 2014) Reason for follow up: annual (last seen 06/2019) Accompanied by: Spouse Equipment type: CPAP Equipment obtained from: [employer] (not getting supplies;) Mask style: Nasal Mask brand: Respironics (Dreamwear) Backup mask available: No (will keep old mask when replaced) Last cushion change: at least a month Prior sleep studies: Yes Year and Where: 2014 - [facility] Type of Sleep Study: Polysomnography HPI additional information: NIKKI BRISENO was diagnosed to have mild, AHI 13.1, obstructive sleep apnea- hypopnea syndrome and returned today with spouse for CPAP therapy annual follow- up. CPAP Compliance Data - Data Reviewed with Patient Average duration of nightly device use: 7 hr 58 min Compliance rate %: 88.9 (180 days) Current pressure setting (cmH2O): 8-12 Humidity settin Heated hose settin Average residual AHI: 2.6 Average large leak: 16 min 52 sec Subjective Missed days of use due to: reports: illness Patient concerns: denies: aerophagia, mask discomfort, air blowing in eyes, mask leak noise, condensation in mask/hose, nasal congestion, dry mouth, nose, throat, epistaxis, other Observed to snore while using device: No Current pressure setting perceived as: comfortable On therapy, patient: reports: sleeping better, awakening more refreshed, being more awake and alert during the day, more rested overall. denies: drowsiness while driving (is not driving, not in 3-5 years) Initial Printer Sleepiness Scale score: 7 (in 2014) Current Printer Sleepiness Scale score: 6 Allergies and Home Medications Home medication list reviewed: Yes Allergy and home medication list: Levothyroxine Omeprazole Amitriptyline Atorvastatin Primidone Topiramate Citalopram Bupropion Potassium chloride Isosorbide mononitrate oxybutynin chloride ER Tamsulosin ferrous sulphate Folic acid Aspirin Vitamin D Flunisolide Nitrostat Review of Systems Review of systems same as previous: No (toe amputations, last one in May 2020) Physical Exam Heart Rate: 75 O2 Saturation: 96 Height: 6 ft 1 in Weight: 200 lb Body Mass Index: 26.4 BMI Classification: Overweight Impression and Plan 1. Obstructive Sleep Apnea-Hypopnea Syndrome, mild, with good treatment compliance and good apnea control. On CPAP therapy, the patient has better sleep quality and is more rested overall. He is no longer able to get supplies from [email or web address] and needs a new DME. I will have my residence life coordinator inform of DME options. A [facility] prescription will then be made. Patient advised to contact this office if further supply problems. Patient's apnea severity and rationale for treatment to reduce apnea, improve sleep quality and reduce cardiovascular and cerebrovascular events was reviewed. I also reviewed the benefit of consistent device use of CPAP for hypertension, cardiac disease, gastric reflux, and depression. He has significant improvement of his sleep apnea and is satisfied with his treatment with intent to continue for a long time. * Continue auto CPAP pressure at 8-12 cmH2O * Transfer DME and update supplies * Notify me if snoring with mask or feeling that the pressure is too much or too little * Maintain a healthy weight * Call this office if any problems using CPAP * Return for follow up in 1 year, or sooner if concerns arise Counseling Topics: Spare mask, Weight loss health impact Visit Type: In Office Time Spent with Patient (minutes): 27 Provider Statement: I spent 100% of the Face to Face Visit with the patient with greater than 50% spent counseling the patient and coordination of care.
== END 2020-07-22 14:06 | disposition home or self-care (01) ==
LOC: SC 14:05
PROVIDERS: ATTEND Nurse Practitioner Family
DX: G47.33 Obstructive sleep apnea (adult) (pediatric) (principal); E66.3 Overweight; Z68.26 Body mass index [BMI] 26.0-26.9, adult
CPT/HCPCS: 99213; G0463; 99212

== ENCOUNTER 2021-01-20 15:34 | Outpatient (CLI) | payer MEDICARE, OTHER ==
--- NOTE | 2021-01-21 09:42 | XRAY Report ---
PROCEDURE: Thoracic Spine 2 View INDICATIONS: CHRONIC LOW BACK PAIN TECHNIQUE: 3 views of the thoracic spine were acquired. COMPARISON: None. FINDINGS: Bones: Cervicothoracic junction not well seen. No fractures or dislocations. No suspicious bony les ions. 12 pairs of ribs are noted, and appear intact where visualized. Sternotomy. Soft tissues: No paravertebral stripe thickening. IMPRESSION: No osseous abnormalities visualized. Reviewed by: Marcos Ramirez MD on 01/21/2021 9:41 AM PDT Approved by: Marcos Ramirez MD on 01/21/2021 9:41 AM PDT Station ID: [id number]
--- NOTE | 2021-01-21 16:35 | XRAY Report ---
PROCEDURE: Lumbar Spine 2 View INDICATIONS: Lumbar radiculopathy, chronic lower back pain TECHNIQUE: 3 views of the lumbar spine were acquired. COMPARISON: None. FINDINGS: No acute fracture seen. Straightening of the normal lordotic curvature. Scattered multilevel endplat e spurring and diffuse facet arthropathy. Grade 1 anterolisthesis of L2 on L3. Diffuse osteopenia. Mi ld dextroscoliosis. Severe narrowing of the L3-L4, L4-L5 and L5-S1 disc spaces. Diffuse mild narrowin g of the remaining lower thoracic and upper lumbar disc spaces. IMPRESSION: Grade 1 anterolisthesis of L2 on L3 and loss of the normal lordotic curvature. Multilevel spondylosis and facet disease as above, most pronounced at L3-S1.. Reviewed by: Emil Lugo MD on 01/21/2021 4:33 PM PDT Approved by: Emil Lugo MD on 01/21/2021 4:33 PM PDT Station ID: [id number]
== END 2021-01-20 15:35 | disposition home or self-care (01) ==
LOC: DI 15:34
PROVIDERS: ATTEND Family Medicine
DX: M54.50 Low back pain, unspecified (principal); M43.16 Spondylolisthesis, lumbar region; M47.26 Other spondylosis with radiculopathy, lumbar region; M47.27 Other spondylosis with radiculopathy, lumbosacral region

== ENCOUNTER 2021-06-19 17:49 | Outpatient (CLI) | payer MEDICARE, OTHER | END 2021-06-19 17:50 | disposition EMS.NT | LOC: EMS 17:49 | DX: R42 Dizziness and giddiness (principal) ==

== ENCOUNTER 2021-07-05 11:20 | Outpatient (CLI) | payer MEDICARE, OTHER ==
[2021-07-05 12:23] LABS: CHOL/HDL RATIO 3.6 (<5.0); CHOLESTEROL 135 mg/dL; HDL CHOLESTEROL 38 mg/dL; LDL CHOLESTEROL,CALCULATED 69 mg/dL; LDL/HDL RATIO 1.8 (<3.6); TRIGLYCERIDES 141 mg/dL; VLDL CHOLESTEROL 28 mg/dL
[2021-07-05 12:26] LABS: THYROID STIMULATING HORMONE 2.68 uIU/mL (0.34-5.60)
== END 2021-07-05 11:21 | disposition home or self-care (01) ==
LOC: LAB 11:20
PROVIDERS: ATTEND Family Medicine
DX: I10 Essential (primary) hypertension (principal); R56.9 Unspecified convulsions; G47.33 Obstructive sleep apnea (adult) (pediatric); M54.16 Radiculopathy, lumbar region; E03.9 Hypothyroidism, unspecified; I73.9 Peripheral vascular disease, unspecified; G62.9 Polyneuropathy, unspecified; I25.10 Atherosclerotic heart disease of native coronary artery without angina pectoris
CPT/HCPCS: 36415; 80061; 83721; 84443

== ENCOUNTER 2021-10-05 10:39 | Outpatient (CLI) | payer MEDICARE, OTHER ==
[2021-10-05 11:37] VITALS: BP 122/76
--- NOTE | 2021-10-05 11:37 | SLEEP CARE CONSULTATION ---
Information from patient questionnaire entered by Aubrey Bravo MA. I have reviewed and concur with the information entered by Aubrey Bravo MA. This document represents the service I personally performed and the decisions made by , Yara Lanza ARNP. History of Present Illness Service Date and Time: 10/05/2021 1039 Previous diagnosis: Mild, Obstructive Sleep Apnea-Hypopnea Syndrome AHI: 13.1 (in 2014) Reason for follow up: annual (JESSICA, LAST SEEN 07/2020, ) Accompanied by: Spouse Equipment type: CPAP Equipment obtained from: [employer] (getting supplies but they call a lot) Mask style: Nasal Mask brand: Respironics (Dreamwear) Backup mask available: No (will keep old mask when replaced) Last cushion change: 6-8 months Prior sleep studies: Yes Year and Where: 2014 - [facility] Type of Sleep Study: Polysomnography HPI additional information: NIKKI BRISENO was diagnosed to have mild, AHI 13.1, obstructive sleep apnea- hypopnea syndrome and returned today with spouse for CPAP therapy first compliance after updating device follow-up. Sleep Study - Results Type of Sleep Study: Polysomnography Prior sleep studies: Yes Year and Where: 2014 - [facility] CPAP Compliance Data - Data Reviewed with Patient Average duration of nightly device use: 6 hours Compliance rate %: 100 (30/30 days; [place]) Current pressure setting (cmH2O): 8-12 Average residual AHI: 0.2 Average large leak: 12.4 Compliance data discussion: We were able to retrieve some compliance information off of the Jessica CPAP. We are trying to obtain access online for a more comprehensive report. Subjective Missed days of use due to: reports: illness (FOOT WOUNDS) Patient concerns: reports: condensation in mask/hose. denies: aerophagia, mask discomfort, air blowing in eyes, mask leak noise, nasal congestion, dry mouth, nose, throat, epistaxis, other Current pressure setting perceived as: comfortable On therapy, patient: reports: sleeping better, awakening more refreshed, being more awake and alert during the day, more rested overall. denies: drowsiness while driving (does not drive) Initial [place] Sleepiness Scale score: 7 (in 2014) Current [place] Sleepiness Scale score: 18 (10/05/2021) Allergies and Home Medications Known drug allergies: Yes (CODEINE) Home medication list reviewed: Yes (no changes ) Allergy and home medication list: Allergies amoxicillin [From Augmentin] Allergy (Verified 12/09/19 11:36) Unknown clavulanic acid [From Augmentin] Allergy (Verified 12/09/19 11:36) Unknown codeine Adverse Reaction (Intermediate, Verified 12/09/19 11:36) Edema Review of Systems Review of systems same as previous: Yes (WOUND CARE ON HIS TOES, ) Physical Exam Vital signs obtained and entered by: Lilian BRAVO CMA AAMARSHAL Blood Pressure: 122/76 (RESP 18, PULSE 71, RIGHT) Cuff size: wrist Heart Rate: 71 O2 Saturation: 100 (PAPER MASK) Height: 6 ft 1 in Weight: 190 lb (CLOTHES) Weight change since last visit: MAINTAIN Body Mass Index: 25.0 BMI Classification: Overweight Impression and Plan 1. Obstructive Sleep Apnea-Hypopnea Syndrome, mild, with excellent treatment compliance and excellent apnea control. On CPAP therapy, the patient has better sleep quality and is more rested overall. Patient is satisfied with current CP AP therapy and has significant improvement of his sleep apnea. He purchased a Jessica CPAP on his own to replace the DreamStation that was on the recall. He states he did not know at the time that he was eligible to have this covered by his insurance and is going to pursue getting them to cover the cost. He states this machine he got does not have a heated hose and he gets some condensation in the hose. I advised him to set the machine lower than the head of his bed either on the floor or on a stepstool to help reduce condensation in the hose causing noise in the hose. He voiced understanding. Patient denies problems with oral dryness, nasal congestion, epistaxis, skin irritation or aerophagia. Patient has had more incidences of daytime sleepiness and falling asleep in the afternoon. After reviewing his compliance and therapy data it appears that he is getting very good apnea control with current CPAP settings. He states he does wake up feeling rested and would not sleep without it. Patient's apnea severity and rationale for treatment to reduce apnea, improve sleep quality and reduce cardiovascular and cerebrovascular events was reviewed. I also reviewed the benefit of consistent device use of CPAP for hypertension, cardiac disease, gastric reflux and depression. Patient and were shown how to obtain download of information on the Jessica prior to their appointment. . * Continue auto CPAP pressure at 8-12 cmH2O * Notify me if snoring with mask or feeling that the pressure is too much or too little * Maintain healthy weight * Call this office if any problems using CPAP * Return for follow up in 1 year, or sooner if concerns arise Counseling Topics: Spare mask Visit Type: In Office Other Participants: Spouse/Significant Other Time Spent with Patient (minutes): 21 Provider Statement: I spent 100% of the Face to Face Visit with the patient with greater than 50% spent counseling the patient and coordination of care.
== END 2021-10-05 10:40 | disposition home or self-care (01) ==
LOC: SC 10:39
PROVIDERS: ATTEND Nurse Practitioner Family
DX: G47.33 Obstructive sleep apnea (adult) (pediatric) (principal)
CPT/HCPCS: 99213; G0463; 99212

== ENCOUNTER 2021-10-13 16:47 | Outpatient (CLI) | payer MEDICARE, OTHER | END 2021-10-13 16:48 | disposition EMS.NT | LOC: EMS 16:47 | DX: U07.1 COVID-19 (principal) ==

== ENCOUNTER 2021-10-19 14:43 | Emergency (ER) | payer MEDICARE, OTHER ==
--- NOTE | 2021-10-19 14:49 | ED Physician Documentation ---
PD HPI URI - Stated complaint Stated Complaint: C+ COUGH - History obtained from History obtained from: Patient, EMS - Additional information Additional information: 81-year-old gentleman with history of Four-vessel CABG, no lung problems per him developed symptomatic COVID a week ago. Now has a worsening cough associated with production of yellow sputum. He denies shortness of breath or fevers. He was sent from assisted living for concern for pneumonia. Review of Systems Constitutional: denies: Fever, Chills Cardiac: denies: Chest pain / pressure, Palpitations Respiratory: reports: Cough. denies: Dyspnea PD PAST MEDICAL HISTORY - Past Medical History Cardiovascular: Hypertension, High cholesterol, Angina, [place] GI: GERD : Benign prostate hypertrophy HEENT: Chronic sinusitis Psych: Depression Musculoskeletal: Chronic back pain Derm: Rosacea - Past Surgical History Past Surgical History: Yes General: Cholecystectomy, Colonoscopy Ortho: Rotator cuff repair Cardiovascular: CABG, Coronary stent - Present Medications Home Medications: Ambulatory Orders Medication Instructions Recorded Confirmed Amitriptyline HCl 20 mg PO QPM 03/28/13 07/25/21 Atorvastatin Calcium 40 mg PO QPM 03/28/13 07/25/21 Citalopram [CeleXA] 40 mg PO DAILY 03/28/13 07/25/21 Flunisolide 1 spray NS BID 03/28/13 07/25/21 Omeprazole 20 mg PO DAILY 03/28/13 07/25/21 Primidone [Mysoline] 200 mg PO TID 03/28/13 07/25/21 Aspirin [Aspir 81] 81 mg PO DAILY 10/13/14 07/25/21 Bupropion HCl [Bupropion HCl Sr] 150 mg PO BID 10/13/14 07/25/21 Cholecalciferol (Vitamin D3) 1,000 unit PO DAILY 10/13/14 07/25/21 [Vitamin D] Ferrous Sulfate 325 mg PO DAILYWM 10/13/14 07/25/21 Potassium Chloride [Micro-K] 10 meq PO DAILY 10/13/14 07/25/21 Levothyroxine [Synthroid] 25 mcg PO DAILY 11/10/14 07/25/21 Tamsulosin [Flomax] 0.4 mg PO DAILY 07/26/16 07/25/21 Folic Acid 2.5 mg PO DAILY tablet 06/07/18 07/25/21 Nitroglycerin [Nitrostat] 0.4 mg SL Q4HR PRN #10 tablet 06/07/18 07/25/21 Isosorbide Mononitrate ER [Imdur] 30 mg PO DAILY 01/07/19 07/25/21 Oxybutynin Chloride 10 mg PO DAILY 01/07/19 07/25/21 Topiramate [Topamax] 50 mg PO BID 12/09/19 07/25/21 Doxycycline Hyclate 100 mg PO BID #14 tab.sr 10/19/21 - Allergies Allergies/Adverse Reactions: Allergies Allergy/AdvReac Type Severity Reaction Status Date / Time amoxicillin [From Augmentin] Allergy Unknown Verified 10/19/21 14:50 clavulanic acid Allergy Unknown Verified 10/19/21 14:50 [From Augmentin] codeine AdvReac Intermediate Edema Verified 10/19/21 14:50 - Social History Does the pt smoke?: No Smoking Status: Never smoker Does the pt drink ETOH?: No Does the pt have substance abuse?: No - Immunizations Immunizations are current?: Yes - POLST Patient has POLST: No PD ED PE NORMAL - Vitals Vital signs reviewed: Yes - General General: Alert and oriented X 3, Other (Frequent coughing, otherwise no distress) - Cardiac Cardiac: RRR, No murmur - Respiratory Respiratory: Other (Bilateral rhonchi at the bases, nonlabored but frequent coughing.) - Extremities Extremities: No edema, No calf tenderness / cord - Neuro Neuro: Alert and oriented X 3, Normal speech Results - Vitals Vitals: Vital Signs - 24 hr 10/19/21 10/19/21 14:50 14:53 Temperature 36.8 C Heart Rate 71 77 Respiratory 20 23 Rate Blood Pressure 134/62 H 132/84 H O2 Saturation 97 99 Oxygen O2 Source Room air - Labs Labs: Laboratory Tests 10/19/21 10/19/21 10/19/21 15:05 15:05 15:05 WBC 11.0 H RBC 4.34 L Hgb 14.4 Hct 42.0 MCV 96.8 H MCH 33.2 H MCHC 34.3 RDW 12.8 Plt Count 149 MPV 9.9 Neut # (Auto) 7.7 H Lymph # (Auto) 1.6 [place] # (Auto) 1.0 Eos # (Auto) 0.7 Baso # (Auto) 0.0 Absolute Nucleated RBC 0.00 Nucleated RBC % 0.0 VBG pH 7.397 VBG pCO2 30.8 L VBG pO2 58.3 H VBG HCO3 18.5 L VBG Total CO2 19.5 L VBG O2 Saturation 90.8 H VBG Base Excess -5.0 L Sodium 137 Potassium 3.9 Chloride 106 Carbon Dioxide 20 L Anion Gap 11.0 BUN 19 Creatinine 1.0 Estimated GFR (MDRD) 71 L Glucose 108 H Calcium 9.2 - Rads (name of study) Single view chest x-ray without evidence of acute pulmonary or cardiac disease. Radiology: EMP read contemporaneously PD MEDICAL DECISION MAKING - ED course ED course: 81-year-old gentleman with known COVID presents with persistent cough and now productive. X-ray is clear but given mild leukocytosis and age will cover with antibiotics. Departure - Departure Disposition: 01 Home, Self Care Clinical Impression: Bronchitis Condition: Good Record reviewed to determine appropriate education?: Yes Instructions: ED Bronchitis Asthmatic Prescriptions: Doxycycline Hyclate 100 mg PO BID #14 tab.sr Comments: No clear pneumonia on x-ray, but she did have a mild elevation in white blood cell count which could be consistent with a bacterial infection. As such I am starting antibiotics. Return for new or worsening symptoms. Follow-up with your doctor Sunday for recheck. Discharge Date/Time: 10/19/21 16:52
[2021-10-19 14:54] VITALS: BP 132/84
[2021-10-19 15:09] LABS: BASOPHILS % (AUTO) 0.3 %; EOSINOPHILS # (AUTO) 0.7 10^3/uL (0.0-0.7); HGB - HEMOGLOBIN 14.4 g/dL (14.0-18.0); LYMPHOCYTES # (AUTO) 1.6 10^3/uL (1.5-3.5); LYMPHOCYTES % (AUTO) 14.2 %; MEAN CORPUSCULAR HEMOGLOBIN 33.2 pg (27.0-31.0); MEAN CORPUSCULAR HGB CONC 34.3 g/dL (32.0-36.0); MEAN CORPUSCULAR VOLUME 96.8 fL (80.0-94.0); MEAN PLATELET VOLUME 9.9 fL (7.4-11.4); MONOCYTES % (AUTO) 9.3 %; NEUTROPHILS # (AUTO) 7.7 10^3/uL (1.5-6.6); NEUTROPHILS % (AUTO) 69.5 %; PLT - PLATELET COUNT 149 10^3/uL (130-450); RED BLOOD COUNT 4.34 10^6/uL (4.70-6.10); RED CELL DISTRIBUTION WIDTH 12.8 % (12.0-15.0)
[2021-10-19 15:10] LABS: VBG PCO2 30.8 mmHg (41-51); VBG PH 7.397 (7.31-7.41)
[2021-10-19 15:11] LABS: VBG HCO3 18.5 mmol/L (23-28); VBG OXYGEN SATURATION 90.8 % (60-80); VBG PO2 58.3 mmHg (25-47); VBG TOTAL CO2 19.5 mmol/L (24-29)
[2021-10-19 15:17] LABS: CALCIUM 9.2 mg/dL (8.5-10.3); POTASSIUM 3.9 mmol/L (3.5-5.0)
--- NOTE | 2021-10-19 15:20 | XRAY Report ---
PROCEDURE: Chest 1 View X-Ray INDICATIONS: cough TECHNIQUE: One view of the chest was acquired. COMPARISON: 06/06/2018 FINDINGS: Surgical changes and devices: Status post CABG. Lungs and pleura: No pleural effusions or pneumothorax. Lungs are clear. Mediastinum: Mediastinal contours appear normal. Heart size is normal. Retrocardiac hiatal hernia r edemonstrated. Bones and chest wall: No suspicious bony lesions. Overlying soft tissues appear unremarkable. IMPRESSION: No acute cardiopulmonary disease process. Reviewed by: Nany Bowers MD, PhD on 10/19/2021 3:19 PM PDT Approved by: Nany Bowers MD, PhD on 10/19/2021 3:19 PM PDT Station ID: [id number]
[2021-10-19] MEDS ORDERED: DOXYCYCLINE 100 MG TABLET PO STA (15:37)
== END 2021-10-19 16:52 | disposition home or self-care (01) ==
LOC: EDUNIT# → ED 14:43
DX: U07.1 COVID-19 (principal); J40 Bronchitis, not specified as acute or chronic
CPT/HCPCS: 36415; 71045; 80048; 82803; 85025; 99282; 99284; A9270

== ENCOUNTER 2021-11-18 14:04 | Outpatient (CLI) | payer MEDICARE, OTHER | END 2021-11-18 14:05 | disposition home or self-care (01) | LOC: LAB 14:04 | PROVIDERS: ATTEND Family Medicine | DX: A04.72 Enterocolitis due to Clostridium difficile, not specified as recurrent (principal) | CPT/HCPCS: 87493 ==

== ENCOUNTER 2022-03-14 14:21 | Outpatient (CLI) | payer MEDICARE, OTHER ==
--- NOTE | 2022-03-14 17:09 | XRAY Report ---
PROCEDURE: Lumbar Spine 2 View INDICATIONS: LOW BACK PAIN TECHNIQUE: 3 views of the lumbar spine were acquired. COMPARISON: None. FINDINGS: Bones: 5 [id number] vertebrae are present. There is straightening of normal lumbar lordosis. L oss of disc height, degenerative endplate changes and bilateral facet arthrosis throughout lumbar spi ne is seen more notably at L3-4 through L5-S1 levels. No vertebral body compression fractures. No s uspicious bony lesions. Soft tissues: Overlying bowel gas pattern is normal. No suspicious soft tissue calcifications. IMPRESSION: Degenerative disc disease throughout lumbar spine as above. No acute compression fractur e or significant listhesis. Reviewed by: Bhupendra Jara MD on 03/14/2022 5:08 PM PST Approved by: Bhupendra Jara MD on 03/14/2022 5:08 PM PST Station ID: [id number]
--- NOTE | 2022-03-14 17:10 | XRAY Report ---
PROCEDURE: Thoracic Spine 2 View INDICATIONS: LOW BACK PAIN TECHNIQUE: 3 views of the thoracic spine were acquired. COMPARISON: None. FINDINGS: Bones: No fractures or dislocations. Mild degenerative endplate changes and loss of disc height in m id to lower thoracic spine is seen. No suspicious bony lesions. 12 pairs of ribs are noted, and appe ar intact where visualized. Soft tissues: No paravertebral stripe thickening. IMPRESSION: Mild degenerative disc disease in mid to lower thoracic spine. No acute compression fracture or spond ylolisthesis. Reviewed by: Bhupendra Jara MD on 03/14/2022 5:09 PM PST Approved by: Bhupendra Jara MD on 03/14/2022 5:09 PM PST Station ID: [id number]
== END 2022-03-14 14:22 | disposition home or self-care (01) ==
LOC: DI 14:21
PROVIDERS: ATTEND Family Medicine
DX: M51.36 Other intervertebral disc degeneration, lumbar region (principal); M51.37 Other intervertebral disc degeneration, lumbosacral region; M47.816 Spondylosis without myelopathy or radiculopathy, lumbar region; M47.817 Spondylosis without myelopathy or radiculopathy, lumbosacral region; M51.34 Other intervertebral disc degeneration, thoracic region

== ENCOUNTER 2023-01-03 08:55 | Outpatient (CLI) | payer MEDICARE, OTHER | END 2023-01-03 23:59 | disposition EMS.NT | LOC: EMS 08:55 | DX: Z03.89 Encounter for observation for other suspected diseases and conditions ruled out (principal) ==

== ENCOUNTER 2023-01-05 14:13 | Outpatient (CLI) | payer MEDICARE, OTHER | END 2023-01-05 14:14 | disposition critical access hospital (66) | LOC: EMS 14:13 | DX: M54.50 Low back pain, unspecified (principal); R10.31 Right lower quadrant pain; W18.30XA Fall on same level, unspecified, initial encounter; Y92.039 Unspecified place in apartment as the place of occurrence of the external cause | CPT/HCPCS: A0425; A0429 ==

== ENCOUNTER 2023-01-05 14:32 | Emergency (ER) | payer MEDICARE, OTHER ==
[2023-01-05] MEDS ORDERED: KETOROLAC 15 MG/ML VIAL IVP STA (14:45)
--- NOTE | 2023-01-05 14:45 | ED Physician Documentation ---
PD HPI Fall - Stated complaint Stated Complaint: GLF/LLQ PX - History obtained from History obtained from: Patient, EMS - History of Present Illness Mechanism of injury: Lost balance Fall distance: Standing position Where injury occurred: Home Timing - onset: How many days ago (2) Injury(ies) location: Abdomen (right sided abd pain when struck walker and table as he fell. Not having pain initially then but has developed pain since that time, particularly worse today.). No: Head, Neck Quality of pain: Pain, Throbbing, Aching Associated symptoms: No: LOC, AMS, Neck pain Symptoms improve with: Rest Worsens with: Movement, Palpation Contributing factors: No: Anticoagulated Similar symptoms before: Has not had sx before Recently seen: Not recently seen Review of Systems Constitutional: denies: Fever, Chills Nose: denies: Rhinorrhea / runny nose, Congestion Throat: denies: Sore throat Cardiac: denies: Chest pain / pressure Respiratory: denies: Dyspnea, Cough GI: reports: Abdominal Pain, Constipation (having feeling of abd fullness but not rectal pressure.). denies: Nausea, Vomiting, Diarrhea PD PAST MEDICAL HISTORY - Past Medical History Cardiovascular: Hypertension, High cholesterol, Angina, [place], Other (he and not aware or prior AAA diagnosis. ) GI: GERD, Hiatal hernia : Benign prostate hypertrophy HEENT: Chronic sinusitis Psych: Depression Musculoskeletal: Chronic back pain Derm: Rosacea - Past Surgical History Past Surgical History: Yes General: Cholecystectomy, Colonoscopy Ortho: Rotator cuff repair Cardiovascular: CABG, Coronary stent - Present Medications Home Medications: Ambulatory Orders Medication Instructions Recorded Confirmed Amitriptyline HCl 20 mg PO QPM 03/28/13 01/05/23 Atorvastatin Calcium 40 mg PO QPM 03/28/13 01/05/23 Citalopram [CeleXA] 40 mg PO DAILY 03/28/13 01/05/23 Flunisolide 1 spray NS BID 03/28/13 01/05/23 Omeprazole 20 mg PO DAILY 03/28/13 01/05/23 Primidone [Mysoline] 200 mg PO TID 03/28/13 01/05/23 Aspirin [Aspir 81] 81 mg PO DAILY 10/13/14 01/05/23 Bupropion HCl [Bupropion HCl Sr] 100 mg PO BID 10/13/14 01/05/23 Cholecalciferol (Vitamin D3) 1,000 unit PO DAILY 10/13/14 01/05/23 [Vitamin D] Potassium Chloride [Micro-K] 10 meq PO DAILY 10/13/14 01/05/23 Levothyroxine [Synthroid] 25 mcg PO DAILY 11/10/14 01/05/23 Tamsulosin [Flomax] 0.4 mg PO DAILY 07/26/16 01/05/23 Folic Acid 2.5 mg PO DAILY tablet 06/07/18 01/05/23 Nitroglycerin [Nitrostat] 0.4 mg SL Q4HR PRN #10 tablet 06/07/18 01/05/23 Isosorbide Mononitrate ER [Imdur] 30 mg PO DAILY 01/07/19 01/05/23 Oxybutynin Chloride 10 mg PO DAILY 01/07/19 01/05/23 Topiramate [Topamax] 50 mg PO BID 12/09/19 01/05/23 Docusate Sodium 100Mg Capsule 100 mg PO DAILY #20 cap 01/05/23 [Colace 100Mg Capsule] HYDROcod/ACETAM 5/325 [[place] 5/325] 1 ea PO Q6H PRN #18 tablet 01/05/23 - Allergies Allergies/Adverse Reactions: Allergies Allergy/AdvReac Type Severity Reaction Status Date / Time amoxicillin [From Augmentin] Allergy Unknown Verified 12/11/22 11:06 clavulanic acid Allergy Unknown Verified 12/11/22 11:06 [From Augmentin] codeine AdvReac Intermediate Edema Verified 12/11/22 11:06 - Social History Does the pt smoke?: No Smoking Status: Never smoker Does the pt drink ETOH?: No Does the pt have substance abuse?: No - Immunizations Immunizations are current?: Yes - POLST Patient has POLST: No PD ED PE NORMAL - Vitals Vital signs reviewed: Yes - General General: Alert and oriented X 3, No acute distress, Well developed/nourished - HEENT HEENT: Pharynx benign - Neck Neck: Supple, no meningeal sign, No adenopathy - Cardiac Cardiac: RRR, No murmur - Respiratory Respiratory: No respiratory distress, Clear bilaterally, Other (some chestwall tenderness lower lateral ribs area without deformity nor crepitance. ) - Abdomen Abdomen: Normal bowel sounds, Soft, Non distended, No organomegaly, Other (tender to right lateral abd and right flank without notable bruising nor deformity. Tender soft tissue. but also deeper tenderness. ) - Rectal Rectal: Other (normal rectal tone. Minimal soft stool in vault. No impaction felt. ) - Back Back: No spinal TTP - Derm Derm: Normal color, Warm and dry Results - Vitals Vitals: Oxygen O2 Source Room air - Labs Labs: Laboratory Tests 01/05/23 01/05/23 01/05/23 14:52 14:52 16:30 WBC 6.8 RBC 4.08 L Hgb 13.8 L Hct 41.5 L MCV 101.7 H MCH 33.8 H MCHC 33.3 RDW 13.2 Plt Count 120 L MPV 9.3 Neut # (Auto) 5.6 Lymph # (Auto) 0.4 L [place] # (Auto) 0.7 Eos # (Auto) 0.1 Baso # (Auto) 0.0 Absolute Nucleated RBC 0.00 Nucleated RBC % 0.0 Sodium 137 Potassium 3.5 Chloride 107 Carbon Dioxide 22 Anion Gap 8.0 BUN 16 Creatinine 0.9 Estimated GFR (MDRD) 80 L Glucose 148 H Calcium 9.3 Total Bilirubin 0.4 AST 18 ALT 22 Alkaline Phosphatase 73 Total Protein 6.3 L Albumin 4.2 Globulin 2.1 Albumin/Globulin Ratio 2.0 Lipase < 10 L Urine Color DARK YELLOW Urine Clarity CLEAR Urine pH 6.0 Ur Specific [place] 1.025 Urine Protein NEGATIVE Urine Glucose (UA) NEGATIVE Urine Ketones NEGATIVE Urine Occult Blood TRACE-INTA Urine Nitrite NEGATIVE Urine Bilirubin NEGATIVE Urine Urobilinogen 0.2 (NORMAL) Ur Leukocyte Esterase NEGATIVE Ur Microscopic Review NOT INDICATED Urine Culture Comments NOT INDICATED - Rads (name of study) abd/pelvic CT Relevant Findings:: Prelim report reviewed (no organ injury noted. Constipation with descending colon and rectal stool noted; A/F levels proximal. 4.4 cm aortic aneurysm without signs of free fluid.), EMP independent interpretation of test chest CT Relevant Findings:: Prelim report reviewed (large hiatal hernia. No rib nor lung injury. ), EMP independent interpretation of test PD Medical Decision Making - ED course Complexity details: re-evaluated patient (he is having moderate pain right flank and abd from the injury. Shared discussion about basic pain meds with hydrocodone if needed but ocunterbalanced with the constipation. He has had constipation but not obstruction symptoms so not aggresively treating it in ER, but pt prefers therapy at home. ), considered differential (he states stumbled and fell, striking table with side/abdomen. Pain locally. Not on anticoag. ), d/w patient, d/w family (spouse) Departure - Departure Disposition: 01 Home, Self Care Clinical Impression: Abdominal wall contusion, Fall from slip, trip, or stumble, Obstipation, Aortic aneurysm Condition: Stable Record reviewed to determine appropriate education?: Yes Instructions: ED Constipation, ED Contusion Soft Tissue Prescriptions: Docusate Sodium 100Mg Capsule [Colace 100Mg Capsule] 100 mg PO DAILY #20 cap HYDROcod/ACETAM 5/325 [[place] 5/325] 1 ea PO Q6H PRN #18 tablet PRN Reason: Pain Comments: There is not any internal organ injury nor any bony injury (ribs or pelvis) noted on your CT scans. Findings are of fair degree of constipation in the rectum and descending colon causing a backup of air and some fluid through the transverse colon. This could potentially be causing some pain in the intestine. However the area that you are hurting from the fall is most likely muscular contusion as there is no other obvious injury per se. Also incidental note is made of a abdominal aneurysm without any signs of leakage or such at this time the measurement is maximum of 4.4 cm. At this size, the common recommendation is repeat imaging at a short interval to watch for signs of progression of size. This can be ordered through your primary care and can be an ultrasound most commonly. Defer to your primary care but commonly would be a repeat at 3 to 6 months to look for interval change. The only prior comparison we have is from 2015 which showed just a minimal dilatation of the aorta at approximately 3.6 cm. Concern would be if it reaches over 5.5 cm. I would suggest continue with Tylenol 500 to 650 mg 4 times daily for the next several days to week for your pain. Add hydrocodone/acetaminophen if needed for worse pain at times. The consideration is that this can increase your cons tipation. Regarding constipation, I would suggest doing some treatment from the bottom such as a Dulcolax suppository as there was some stool on mast down in the sigmoid area. I did not feel an impaction in the rectum on digital exam. Otherwise also use a stool softener such as docusate once or twice daily for the next few days and combine it with a fiber supplement that we will try to keep it from getting to watery while it still mobilizes the stool. Follow-up with your primary care if the abdominal pain is not improved over the next several days or so. Return if worse or other concerns. I sent a prescription to your preferred pharmacy. I am prescribing a short course of narcotic pain medication for you. These are potentially dangerous and addictive medications that should be used carefully. These medications may constipate you. Take an [id number] stool softener such as docusate twice daily with plenty of water while taking these medications. If you go 24 hours without a bowel movement, take [id number] MiraLAX, per package instructions. Do not drink or drive while taking these medications. If you received narcotic or sedating medications while in the emergency department do not drive for 24 hours. Store this medication in a safe, secure place and out of reach of children. It is a violation of federal law to give or sell this medication to another person or to use in a manner other than prescribed. The ED will not refill narcotic prescriptions, including prescriptions lost or stolen. You can dispose of unwanted medications at the [facility]'s office or at several pharmacies such as [facility]. Forms: PCP List Discharge Date/Time: 01/05/23 18:59
[2023-01-05] MEDS ORDERED: HYDROmorphone 0.5 MG/0.5 ML SYRINGE IVP STA (14:46)
[2023-01-05 14:58] LABS: BASOPHILS % (AUTO) 0.1 %; EOSINOPHILS # (AUTO) 0.1 10^3/uL (0.0-0.7); EOSINOPHILS % (AUTO) 1.6 %; HCT - HEMATOCRIT 41.5 % (42.0-52.0); HGB - HEMOGLOBIN 13.8 g/dL (14.0-18.0); LYMPHOCYTES # (AUTO) 0.4 10^3/uL (1.5-3.5); LYMPHOCYTES % (AUTO) 6.3 %; MEAN CORPUSCULAR HEMOGLOBIN 33.8 pg (27.0-31.0); MEAN CORPUSCULAR HGB CONC 33.3 g/dL (32.0-36.0); MEAN CORPUSCULAR VOLUME 101.7 fL (80.0-94.0); MEAN PLATELET VOLUME 9.3 fL (7.4-11.4); MONOCYTES # (AUTO) 0.7 10^3/uL (0.0-1.0); MONOCYTES % (AUTO) 9.8 %; NEUTROPHILS # (AUTO) 5.6 10^3/uL (1.5-6.6); NEUTROPHILS % (AUTO) 81.8 %; PLT - PLATELET COUNT 120 10^3/uL (130-450); RED BLOOD COUNT 4.08 10^6/uL (4.70-6.10); RED CELL DISTRIBUTION WIDTH 13.2 % (12.0-15.0); WHITE BLOOD COUNT 6.8 x10^3/uL (4.8-10.8)
[2023-01-05 15:12] LABS: ALBUMIN 4.2 g/dL (3.2-5.5); ALKALINE PHOSPHATASE 73 IU/L (42-121); ALT ALANINE AMINOTRANSFERASE 22 IU/L (10-60); AST ASPARTATE AMINOTRANSFERASE 18 IU/L (10-42); BILIRUBIN,TOTAL 0.4 mg/dL (0.2-1.0); BUN - BLOOD UREA NITROGEN 16 mg/dL (6-20); CALCIUM 9.3 mg/dL (8.5-10.3); CARBON DIOXIDE - CO2 22 mmol/L (21-32); CHLORIDE 107 mmol/L (101-111); CREATININE 0.9 mg/dL (0.6-1.3); GFR - MDRD 80 (>89); GLUCOSE 148 mg/dL (74-104); POTASSIUM 3.5 mmol/L (3.5-4.5); SODIUM 137 mmol/L (135-145); TOTAL PROTEIN 6.3 g/dL (6.4-8.9)
[2023-01-05 15:13] LABS: LIPASE < 10 U/L (11-82)
[2023-01-05 16:54] LABS: BILIRUBIN,URINE NEGATIVE (NEGATIVE); GLUCOSE, URINE (UA) NEGATIVE (NEGATIVE); KETONES,URINE (UA) NEGATIVE (NEGATIVE); LEUKOCYTE ESTERASE, URINE NEGATIVE (NEGATIVE); NITRITE,URINE NEGATIVE (NEGATIVE); OCCULT BLOOD,URINE TRACE-INTA (NEGATIVE); PROTEIN,URINE NEGATIVE (NEGATIVE); UROBILINOGEN,URINE 0.2 (NORMAL) E.U./dL (NORMAL)
[2023-01-05 16:55] LABS: CLARITY,URINE CLEAR (CLEAR)
--- NOTE | 2023-01-05 17:28 | CT Report ---
PROCEDURE: ABDOMEN/PELVIS W INDICATIONS: fall ti right, with abd/chest pain CONTRAST: 100ml omni 300 TECHNIQUE: After the administration of IV contrast, 5 mm thick sections acquired from the diaphragms to the symp hysis. 5 mm thick coronal and sagittal reformats were acquired. For radiation dose reduction, the f ollowing was used: automated exposure control, adjustment of mA and/or kV according to patient size. COMPARISON: None FINDINGS: Image quality: Excellent. Lung bases and heart: Scattered atelectasis in posterior lateral periphery of bilateral lung bases ar e seen. Heart size is enlarged, no pericardial effusion. Atherosclerotic calcifications are noted thr oughout coronary vessels. Median sternotomy wires and surgical clips are seen.. Liver: No solid mass. Well-circumscribed fluid density area involving left hepatic dome measures 9 mm in size is seen. Gallbladder and biliary tree: Gallbladder is surgically absent. Spleen: No splenomegaly. Pancreas: No pancreatic ductal dilation. Adrenals: No adrenal nodule. Kidneys and ureters: No hydronephrosis. No renal cystic lesion which requires follow up. No solid mas s. Bowel and peritoneum: Markedly air and fluid distended colon loops throughout abdomen is seen with fe mireille stasis in the ascending colon and sigmoid colon with fecal distention of rectum. Large hiatal her sandro is seen with the majority of the stomach lumen within the left hemithorax. No abnormal small leslye l loop distention. No abnormal bowel wall thickening or mesenteric fat stranding. No abscess collecti on. No free fluid of free air. Lymph nodes: No central or retroperitoneal adenopathy. Vessels: Fusiform infrarenal abdominal aortic aneurysm is seen measures up to 4.4 cm in largest AP di ameter series 2 image 52. Moderate atherosclerotic calcifications throughout abdominal aorta is noted . PELVIS Reproductive organs: Unremarkable. Bladder: No abnormal wall thickening, accounting for underdistension. Pelvic lymph nodes: No pelvic adenopathy by size criteria. Bones: No aggressive osseous abnormality. No acute fracture or dislocation. Degenerative disc disease throughout lumbar spine is seen. Other: No significant ventral or inguinal hernia. IMPRESSION: 1. No acute solid organ injury is seen in abdomen or pelvis. No free fluid of free air. 2. Markedly distended ascending and transverse colon loops with fecal stasis in the ascending colon a nd extending to rectum suggestive of constipation and fecal impaction. Colonic motility disorder henrique ot be excluded. 3. Large hiatal hernia. No gastric or small bowel wall thickening. No evidence of small bowel obstruc tion. 4. Fusiform infrarenal abdominal aortic aneurysm measures up to 4.4 cm in largest AP diameter. Modera te atherosclerotic disease. 5. No gross acute fracture or dislocation is seen in abdomen or pelvis. No acute vertebral body compr ession fracture. Reviewed by: Bhupendra Jara MD on 01/05/2023 5:26 PM PDT Approved by: Bhupendra Jara MD on 01/05/2023 5:26 PM PDT Station ID: [id number]
--- NOTE | 2023-01-05 17:35 | CT Report ---
PROCEDURE: CHEST W INDICATIONS: fall with anterior chest/abd pain CONTRAST: 100ml omni 300 TECHNIQUE: After the administration of intravenous contrast, 1 mm axial images were acquired from the pulmonary apices through the posterior costophrenic angles. Axial 5 mm soft tissue kernel reconstructions were performed as well as 8 mm axial MIP and coronal and sagittal 5 mm reformations. For radiation dose reduction, the following was used: automated exposure control, adjustment of mA and/or kV according to patient size. COMPARISON: None. FINDINGS: Image quality: Excellent. Lungs and pleura: Patchy groundglass opacities are seen scattered in posterior aspect of bilateral up per and lower lobes. Small infiltrate versus atelectasis are seen scattered in posterior and medial a spect of bilateral lung bases. Mild to moderate centrilobular emphysema is seen. No pleural effusions . No pneumothorax. No suspicious pulmonary nodules which require follow up. Mediastinum: Heart size is enlarged, no pericardial effusion. Postsurgical changes are noted with med madison sternotomy wires and surgical clips. Moderate atherosclerotic calcifications are noted in coronar y vessels. No mediastinal or hilar lymphadenopathy. Large hiatal hernia is seen with adjacent left ba silar atelectasis. Chest wall and lower neck: Thyroid is unremarkable. No axillary or supraclavicular adenopathy by size . Bones: No aggressive osseous abnormality. Upper Abdomen: Please refer to CT of abdomen and pelvis findings. IMPRESSION: 1. Hazy groundglass opacities in posterior aspect of bilateral lung lentz concerning for mild pulmon cecilio edema versus pneumonitis. Small infiltrate versus atelectasis are noted in posterior aspect of bi lateral lung bases. No pleural effusion or pneumothorax. Airway is patent. 2. No mediastinal hematoma. Prior cardiac surgery. Cardiomegaly, no pericardial effusion. Large hiata l hernia. No mediastinal or hilar lymphadenopathy. 3. No gross acute fracture or dislocation is seen in bony thorax. Reviewed by: Bhupendra Jara MD on 01/05/2023 5:33 PM PDT Approved by: Bhupendra Jara MD on 01/05/2023 5:33 PM PDT Station ID: [id number]
[2023-01-05 17:40] VITALS: BP 133/85; O2SAT 99
[2023-01-05] MEDS ORDERED: oxyCODONE 5 MG TABLET PO STA (18:26)
[2023-01-05] MEDS ORDERED: DOCUSATE SODIUM 100 MG CAPSULE PO STA (18:26)
[2023-01-05] MEDS ORDERED: iohexoL-300 100 ML VIAL IVP ONE (19:13)
== END 2023-01-05 18:59 | disposition home or self-care (01) ==
LOC: EDUNIT# → ED 14:32
DX: S30.1XXA Contusion of abdominal wall, initial encounter (principal); W01.198A Fall on same level from slipping, tripping and stumbling with subsequent striking against other object, initial encounter; I71.9 Aortic aneurysm of unspecified site, without rupture; K59.00 Constipation, unspecified; I10 Essential (primary) hypertension
CPT/HCPCS: 36415; 71260; 74177; 80053; 81003; 83690; 85025; 96374; 96375; 99284; A9270; J1170; Q9967; 81001; 87086

== ENCOUNTER 2023-01-13 11:20 | Outpatient (CLI) | payer MEDICARE, OTHER | END 2023-01-13 11:21 | disposition home or self-care (01) | LOC: LAB.N 11:20 | PROVIDERS: ATTEND Radiology Radiation Oncology | DX: C61 Malignant neoplasm of prostate (principal) | CPT/HCPCS: 36415; 84153 ==

== ENCOUNTER 2023-02-06 14:13 | Outpatient (CLI) | payer MEDICARE, OTHER | END 2023-02-06 14:14 | disposition home or self-care (01) | LOC: LAB.N 14:13 | PROVIDERS: ATTEND Urology | DX: C61 Malignant neoplasm of prostate (principal) | CPT/HCPCS: 36415; 84153 ==

== ENCOUNTER 2023-03-10 13:21 | Emergency (ER) | payer MEDICARE, OTHER ==
[2023-03-10 14:09] VITALS: O2SAT 98
--- NOTE | 2023-03-10 14:42 | XRAY Report ---
PROCEDURE: Elbow 3+V LT INDICATIONS: NONHEALING WOUND/BURSAE TECHNIQUE: 3 views of the elbow were acquired. COMPARISON: None. FINDINGS: Bones: No fractures or dislocations. No suspicious bony lesions. No bony erosion. Soft tissues: No effusion. No suspicious soft tissue calcifications or masses. IMPRESSION: No acute bony abnormality. No bony erosion. Reviewed by: Antoni Tubbs MD on 03/10/2023 2:41 PM PST Approved by: Antoni Tubbs MD on 03/10/2023 2:41 PM PST Station ID: [id number]
--- NOTE | 2023-03-10 14:55 | ED Physician Documentation ---
PD HPI SKIN - Stated complaint Stated Complaint: LT ELBOW WOUND - Chief complaint Chief Complaint: Wound - History obtained from History obtained from: Patient - Additional information Additional information: 82-year-old male presents for evaluation of left elbow wound. He states that around 2 months ago he fell, injuring both of his elbows. The right elbow healed but the left elbow developed a swelling area that eventually burst and would drain fluid. He saw his primary care physician 2 weeks ago, who sent him home on Keflex 3 times daily. He states that yesterday he finished up the antibiotic course, but this morning when he was getting ready he noticed a little bit of drainage on his clothes and decided to come to the emergency department for evaluation. He denies pain, swelling, decreased range of motion, other complaints at this time. Review of Systems Constitutional: denies: Fever, Chills Cardiac: denies: Chest pain / pressure, Palpitations, Calf pain Respiratory: denies: Dyspnea, Cough, Wheezing : denies: Dysuria, Frequency, Hesitancy PD PAST MEDICAL HISTORY - Past Medical History Cardiovascular: Hypertension, High cholesterol, Angina, HI, Other GI: GERD, Hiatal hernia : Benign prostate hypertrophy HEENT: Chronic sinusitis Psych: Depression Musculoskeletal: Chronic back pain Derm: Rosacea - Past Surgical History Past Surgical History: Yes General: Cholecystectomy, Colonoscopy Ortho: Rotator cuff repair Cardiovascular: CABG, Coronary stent - Present Medications Home Medications: Ambulatory Orders Medication Instructions Recorded Confirmed Amitriptyline HCl 20 mg PO QPM 03/28/13 01/05/23 Atorvastatin Calcium 40 mg PO QPM 03/28/13 01/05/23 Citalopram [CeleXA] 40 mg PO DAILY 03/28/13 01/05/23 Flunisolide 1 spray NS BID 03/28/13 01/05/23 Omeprazole 20 mg PO DAILY 03/28/13 01/05/23 Primidone [Mysoline] 200 mg PO TID 03/28/13 01/05/23 Aspirin [Aspir 81] 81 mg PO DAILY 10/13/14 01/05/23 Bupropion HCl [Bupropion HCl Sr] 100 mg PO BID 10/13/14 01/05/23 Cholecalciferol (Vitamin D3) 1,000 unit PO DAILY 10/13/14 01/05/23 [Vitamin D] Potassium Chloride [Micro-K] 10 meq PO DAILY 10/13/14 01/05/23 Levothyroxine [Synthroid] 25 mcg PO DAILY 11/10/14 01/05/23 Tamsulosin [Flomax] 0.4 mg PO DAILY 07/26/16 01/05/23 Folic Acid 2.5 mg PO DAILY tablet 06/07/18 01/05/23 Nitroglycerin [Nitrostat] 0.4 mg SL Q4HR PRN #10 tablet 06/07/18 01/05/23 Isosorbide Mononitrate ER [Imdur] 30 mg PO DAILY 01/07/19 01/05/23 Oxybutynin Chloride 10 mg PO DAILY 01/07/19 01/05/23 Topiramate [Topamax] 50 mg PO BID 12/09/19 01/05/23 Docusate Sodium 100Mg Capsule 100 mg PO DAILY #20 cap 01/05/23 [Colace 100Mg Capsule] HYDROcod/ACETAM 5/325 [[place] 5/325] 1 ea PO Q6H PRN #18 tablet 01/05/23 - Allergies Allergies/Adverse Reactions: Allergies Allergy/AdvReac Type Severity Reaction Status Date / Time amoxicillin [From Augmentin] Allergy Unknown Verified 12/11/22 11:06 clavulanic acid Allergy Unknown Verified 12/11/22 11:06 [From Augmentin] codeine AdvReac Intermediate Edema Verified 12/11/22 11:06 - Social History Does the pt smoke?: No Smoking Status: Never smoker Does the pt drink ETOH?: No Does the pt have substance abuse?: No - Immunizations Immunizations are current?: Yes - POLST Patient has POLST: No PD ED PE NORMAL - Vitals Vital signs reviewed: Yes - General General: Alert and oriented X 3, No acute distress, Well developed/nourished - Cardiac Cardiac: RRR, Strong equal pulses - Respiratory Respiratory: No respiratory distress, Clear bilaterally - Abdomen Abdomen: Soft, Non tender, Non distended - Derm Derm: Normal color, Warm and dry, Other (minimal area of swelling on L olecranon. Single drop of clear fluid expressed from area. Not warm, not fluctuant) - Extremities Extremities: No deformity, No tenderness to palpate, Normal ROM s pain, No edema - Neuro Neuro: Alert and oriented X 3, picture hanger 2-12 intact, No motor deficit, Normal speech, Other (walks with walker at baseline) Results - Vitals Vitals: Vital Signs - 24 hr 03/10/23 03/10/23 13:35 15:23 Temperature 36.7 C Heart Rate 76 78 Respiratory 18 18 Rate Blood Pressure 138/75 H 141/78 H O2 Saturation 98 98 Oxygen O2 Source Room air PD Medical Decision Making - ED course Complexity details: reviewed old records, reviewed results, re-evaluated patient, considered differential, d/w patient, d/w family ED course: Well-appearing patient with persistent area on his elbow that drains fluid. This appears to be over the left olecranon bursa. I was able to express a very minimal amount of clear fluid from the bursa, however there does not appear to be any residual fluctuance, warmth, induration, erythema that would suggest underlying abscess or other acute process. X-ray of the elbow was obtained, no acute findings were identified. Patient's at bedside states that the [facility] physician that prescribed the antibiotics did give extra days in case the patient needed them. I think that the patient would benefit from at least a week of extra antibiotics. He was given a clean bandage and an [place] wrap and instructed to change the bandage daily. Additional gauze sent with his for dressing changes. I explained that the patient should keep this bandage on to help compress the bursa and help assist in healing. I recommended that if the area does not improve after 1 extra week of antibiotics that they would benefit from orthopedic consult and a referral was made to a local orthopedic doctor. Departure - Departure Disposition: 01 Home, Self Care Clinical Impression: Bursitis Qualifiers: Bursitis location: elbow Elbow bursitis location: olecranon bursitis Laterality: left Qualified Code(s): M70.22 - Olecranon bursitis, left elbow Condition: Stable Instructions: ED Bursitis Elbow Olecranon Follow-Up: Denton Ronquillo MD [Provider Admit Priv/Credential] - Forms: PCP List Discharge Date/Time: 03/10/23 15:23
[2023-03-10 15:29] VITALS: BP 141/78
== END 2023-03-10 15:23 | disposition home or self-care (01) ==
LOC: ED 13:21
DX: M70.22 Olecranon bursitis, left elbow (principal); I10 Essential (primary) hypertension; Z95.1 Presence of aortocoronary bypass graft
CPT/HCPCS: 87070; 87075; 99283; 99284

== ENCOUNTER 2023-04-10 14:08 | Outpatient (CLI) | payer MEDICARE, OTHER ==
[2023-04-10 17:44] LABS: HCT - HEMATOCRIT 40.9 % (42.0-52.0); HGB - HEMOGLOBIN 13.6 g/dL (14.0-18.0); MEAN CORPUSCULAR HEMOGLOBIN 33.4 pg (27.0-31.0); MEAN CORPUSCULAR HGB CONC 33.3 g/dL (32.0-36.0); MEAN CORPUSCULAR VOLUME 100.5 fL (80.0-94.0); MEAN PLATELET VOLUME 9.8 fL (7.4-11.4); RED BLOOD COUNT 4.07 10^6/uL (4.70-6.10); RED CELL DISTRIBUTION WIDTH 13.2 % (12.0-15.0); WHITE BLOOD COUNT 5.5 x10^3/uL (4.8-10.8)
[2023-04-10 17:58] LABS: CALCIUM 9.2 mg/dL (8.5-10.3); CREATININE 1.3 mg/dL (0.6-1.3); POTASSIUM 3.7 mmol/L (3.5-4.5)
[2023-04-10 18:13] LABS: THYROID STIMULATING HORMONE 4.3 uIU/mL (0.34-5.60)
[2023-04-10 18:19] LABS: FERRITIN 101.1 ng/mL (23.9-336.2)
== END 2023-04-10 14:09 | disposition home or self-care (01) ==
LOC: LAB.N 14:08
PROVIDERS: ATTEND Family Medicine
DX: R41.3 Other amnesia (principal)
CPT/HCPCS: 36415; 80048; 82607; 82728; 84443; 85027

== ENCOUNTER 2023-04-26 19:48 | Outpatient (CLI) | payer MEDICARE, OTHER | END 2023-04-26 19:49 | disposition EMS.NT | LOC: EMS 19:48 | DX: Z03.89 Encounter for observation for other suspected diseases and conditions ruled out (principal) ==

== ENCOUNTER 2023-05-03 13:47 | Outpatient (CLI) | payer MEDICARE, OTHER ==
--- NOTE | 2023-05-03 18:19 | MRI Report ---
PROCEDURE: Brain WO INDICATIONS: MEMORY DISTURBANCE TECHNIQUE: Noncontrast axial T1 spin echo, axial T2 fast spin echo, sagittal and axial FLAIR, coronal T2 fast sp in echo, axial gradient echo, axial diffusion and ADC through the brain. COMPARISON: 11/25/2015 FINDINGS: Image quality: Excellent. CSF Spaces: Basal cisterns are patent. No extra-axial fluid collections. Ventricles are normal in size and shape. Brain: No intracranial masses or hemorrhage. Smith/white matter interface is normal. Brainstem appe ars normal. Diffusion-weighted images demonstrate no acute ischemic insult. No chronic ischemic ins ults. Normal intravascular flow voids are present. Generalized brain parenchymal volume loss is see n, without focal abnormal regional bony loss seen. Age-appropriate chronic small vessel ischemic crowley ge can be seen. Skull and face: Calvarium has normal marrow signal. Orbits appear normal. Incidental note is made of bilateral lens replacements. Sinuses: Sinuses and mastoids are clear. IMPRESSION: Brain MRI within normal limits for age, with generalized brain parenchymal volume loss. No findings of acute or subacute infarction are seen. No prior territorial infarction can be seen. Reviewed by: Jacob Kelsey MD on 05/03/2023 5:18 PM [place] Approved by: Jacob Kelsey MD on 05/03/2023 5:18 PM [place] Station ID: [id number]
== END 2023-05-03 13:48 | disposition home or self-care (01) ==
LOC: DI 13:47
PROVIDERS: ATTEND Family Medicine
DX: R41.3 Other amnesia (principal)

== ENCOUNTER 2023-05-08 14:59 | Outpatient (CLI) | payer MEDICARE, OTHER | END 2023-05-08 15:00 | disposition home or self-care (01) | LOC: LAB.N 14:59 | PROVIDERS: ATTEND Urology | DX: C61 Malignant neoplasm of prostate (principal); R97.20 Elevated prostate specific antigen [PSA] | CPT/HCPCS: 36415; 84153 ==

== ENCOUNTER 2023-08-21 16:43 | Outpatient (CLI) | payer MEDICARE, OTHER | END 2023-08-21 16:44 | disposition home or self-care (01) | LOC: LAB.N 16:43 | PROVIDERS: ATTEND Urology | DX: C61 Malignant neoplasm of prostate (principal); R97.20 Elevated prostate specific antigen [PSA] | CPT/HCPCS: 36415; 84153 ==

== ENCOUNTER 2023-09-03 19:03 | Outpatient (CLI) | payer MEDICARE, OTHER | END 2023-09-03 23:59 | disposition EMS.NT | LOC: EMS 19:03 | DX: Z03.89 Encounter for observation for other suspected diseases and conditions ruled out (principal) ==

== ENCOUNTER 2023-09-06 16:02 | Emergency (ER) | payer MEDICARE, OTHER ==
[2023-09-06 16:57] LABS: BASOPHILS % (AUTO) 0.4 %; EOSINOPHILS # (AUTO) 0.3 10^3/uL (0.0-0.7); EOSINOPHILS % (AUTO) 3.6 %; HCT - HEMATOCRIT 41.9 % (42.0-52.0); HGB - HEMOGLOBIN 13.4 g/dL (14.0-18.0); LYMPHOCYTES # (AUTO) 0.9 10^3/uL (1.5-3.5); LYMPHOCYTES % (AUTO) 11.5 %; MEAN CORPUSCULAR HEMOGLOBIN 31.4 pg (27.0-31.0); MEAN CORPUSCULAR VOLUME 98.1 fL (80.0-94.0); MEAN PLATELET VOLUME 9.1 fL (7.4-11.4); MONOCYTES # (AUTO) 0.8 10^3/uL (0.0-1.0); MONOCYTES % (AUTO) 10.6 %; NEUTROPHILS # (AUTO) 5.8 10^3/uL (1.5-6.6); NEUTROPHILS % (AUTO) 73.3 %; PLT - PLATELET COUNT 146 10^3/uL (130-450); RED BLOOD COUNT 4.27 10^6/uL (4.70-6.10); RED CELL DISTRIBUTION WIDTH 13.4 % (12.0-15.0); WHITE BLOOD COUNT 7.9 x10^3/uL (4.8-10.8)
--- NOTE | 2023-09-06 17:04 | ED Physician Documentation ---
PD HPI ABD PAIN - Stated complaint Stated Complaint: FALL - Chief complaint Chief Complaint: Abd Pain - Additional information Additional information: 82-year-old male with history of hypertension, NM, hiatal hernia, GERD, BPH, depression, chronic back pain, neuropathy requiring multiple toe amputations presents emergency department after experiencing a ground-level fall on Sunday patient has been experiencing left lower quadrant pain. Patient says he is unsure entirely how he fell he believes it is likely related to mechanical was turning somehow lost his balance and fell onto the ground. On his way down he hit the left lower quadrant on an ottoman that is fairly hard. Since then he has been having ongoing left lower quadrant pain that does improve with Tylenol but today feels like the pain is gotten significantly worse. No nausea or vomiting no hematuria no hematemesis no black bowel movements or maroon-colored bowel movements. PD PAST MEDICAL HISTORY - Past Medical History Cardiovascular: Hypertension, High cholesterol, Angina, NM, Other GI: GERD, Hiatal hernia : Benign prostate hypertrophy HEENT: Chronic sinusitis Psych: Depression Musculoskeletal: Chronic back pain Derm: Rosacea - Past Surgical History Past Surgical History: Yes General: Cholecystectomy, Colonoscopy Ortho: Rotator cuff repair Cardiovascular: CABG, Coronary stent - Present Medications Home Medications: Ambulatory Orders Medication Instructions Recorded Confirmed Amitriptyline HCl 20 mg PO QPM 03/28/13 09/06/23 Citalopram [CeleXA] 40 mg PO DAILY 03/28/13 09/06/23 Flunisolide 1 spray NS BID 03/28/13 09/06/23 Primidone [Mysoline] 200 mg PO TID 03/28/13 09/06/23 Aspirin [Aspir 81] 81 mg PO DAILY 10/13/14 09/06/23 Bupropion HCl [Bupropion HCl Sr] 100 mg PO BID 10/13/14 09/06/23 Cholecalciferol (Vitamin D3) 1,000 unit PO DAILY 10/13/14 09/06/23 [Vitamin D] Potassium Chloride [Micro-K] 10 meq PO DAILY 10/13/14 09/06/23 Levothyroxine [Synthroid] 25 mcg PO DAILY 11/10/14 09/06/23 Tamsulosin [Flomax] 0.4 mg PO DAILY 07/26/16 09/06/23 Nitroglycerin [Nitrostat] 0.4 mg SL Q4HR PRN #10 tablet 06/07/18 09/06/23 Topiramate [Topamax] 50 mg PO BID 12/09/19 09/06/23 Docusate Sodium 100Mg Capsule 100 mg PO DAILY #20 cap 01/05/23 09/06/23 [Colace 100Mg Capsule] Famotidine 40 mg PO DAILY 09/06/23 09/06/23 - Allergies Allergies/Adverse Reactions: Allergies Allergy/AdvReac Type Severity Reaction Status Date / Time amoxicillin [From Augmentin] Allergy Unknown Verified 09/06/23 16:05 clavulanic acid Allergy Unknown Verified 09/06/23 16:05 [From Augmentin] codeine AdvReac Intermediate Edema Verified 09/06/23 16:05 - Social History Does the pt smoke?: No Smoking Status: Never smoker Does the pt drink ETOH?: No Does the pt have substance abuse?: No - Immunizations Immunizations are current?: Yes - POLST Patient has POLST: No PD ED PE NORMAL - Vitals Vital signs reviewed: Yes - General General: Alert and oriented X 3, No acute distress, Well developed/nourished - Respiratory Respiratory: No respiratory distress, Clear bilaterally - Abdomen Abdomen: Soft, Other (LLQ tenderness, no erythema or bruising) - Back Back: No CVA TTP - Derm Derm: Normal color, Warm and dry, No rash Results - Vitals Vitals: Vital Signs - 24 hr 09/06/23 09/06/23 09/06/23 16:06 17:02 19:14 Temperature 36.7 C Heart Rate 76 75 72 Respiratory 16 20 16 Rate Blood Pressure 142/77 H 136/76 H 153/86 H O2 Saturation 98 96 100 Oxygen O2 Source Room air - Labs Labs: Laboratory Tests 09/06/23 09/06/23 16:48 16:48 WBC 7.9 RBC 4.27 L Hgb 13.4 L Hct 41.9 L MCV 98.1 H MCH 31.4 H MCHC 32.0 RDW 13.4 Plt Count 146 MPV 9.1 Neut # (Auto) 5.8 Lymph # (Auto) 0.9 L [facility] # (Auto) 0.8 Eos # (Auto) 0.3 Baso # (Auto) 0.0 Absolute Nucleated RBC 0.00 Nucleated RBC % 0.0 Sodium 137 Potassium 3.7 Chloride 105 Carbon Dioxide 24 Anion Gap 8.0 BUN 16 Creatinine 1.0 Estimated GFR (MDRD) 71 L Glucose 114 H Calcium 9.3 Magnesium 1.5 L Total Bilirubin 0.3 AST 15 ALT 14 Alkaline Phosphatase 75 Total Protein 6.7 Albumin 4.1 Globulin 2.6 Albumin/Globulin Ratio 1.6 Lipase 14 - Rads (name of study) CT abdomen pelvis with con Relevant Findings:: Final report received, EMP independent interpretation of test, Other (No acute findings within the abdomen or pelvis, focal luminal narrowing of the transverse colon, infrarenal abdominal aorta mildly increased to 4.8 cm) PD Medical Decision Making - ED course ED course: 82-year-old male presents emergency department for left lower quadrant pain and tenderness after experiencing a ground-level fall about 4 to 5 days ago. Labs are complete for further evaluation no leukocytosis mild anemia, hemoglobin 13.4 which is fairly normal to the patient. No electrolyte abnormalities normal kidney function mildly suppressed magnesium at 1.5. CT abdomen pelvis was complete for further evaluation of this left lower quadrant tenderness and did not reveal any acute findings that could be contributing to the patient's left lower quadrant pain and tenderness. It revealed incidentally that there is a focal luminal narrowing of the transverse colon within the possible wall thickening spanning 2.7 cm and patient was told about this that this could be possibly due to neoplasm and that he needs to follow-up with his primary care provider for colonoscopy for further evaluation. Patient says that he was aware of the infrarenal abdominal aorta and it has minimally increased in size up to 4.8 cm. 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 Patient was also told to follow-up with his primary care provider about these findings. Patient says that his pain is well-controlled with [id number] Tylenol he was given some Tylenol here in the emergency department and said that it did help with the pain significantly he was given ER return precautions all questions answered patient safe for discharge with his told to follow-up with his primary care provider. Departure - Departure Disposition: 01 Home, Self Care Clinical Impression: Abdominal wall contusion Instructions: Bruises Contusions Comments: It was thank you for trusting us with your care. We have completed a CT and below you will find the results. We are not seeing anything obvious on the CT scan that could be causing this left lower quadrant pain. Continue to take Tylenol 1000 mg every 8 hours as needed for pain or discomfort. CT does see some narrowing of your transverse colon and they are recommending an outpatient GI procedure, colonoscopy for further evaluation of this. Please follow-up with your primary care provider about today's ER visit and these findings and let them help you with referral and getting something scheduled. Please come back to the ER if you are having any worsening symptoms or any other concerning emergent symptoms. Wishing you a speedy recovery. PT NAME: NIKKI BRISENO MR#: [id number] REG ER/ED AGE: 82 CI DT/TM: 09/06/23 PCP: Honey Fields MD : 1940 ATT: SEX: M ORD: [facility] EXAM: CT/ABPEW ([id number]) PROCEDURE: Abdomen/Pelvis W INDICATIONS: LLQ pain after GLF CONTRAST: Omni 300 100ml TECHNIQUE: After the administration of intravenous contrast, a CT scan of the abdomen and pelvis was performed. Images were recorded and evaluated at appropriate window settings. Reformats: coronal and sagittal. For radiation dose reduction, the following was used: automated exposure control, adjustment of mA and/or kV according to patient size. COMPARISON: 01/05/2023 FINDINGS: Image quality: Diagnostic. Lower chest: Linear atelectasis versus scarring at the bilateral lung bases. Large hiatal hernia. Severe coronary calcifications. Liver: No solid mass. Gallbladder: Surgically absent. Biliary tree: No intrahepatic or extrahepatic dilation, accounting for age. Spleen: No splenomegaly. Splenule is noted. Pancreas: No pancreatic ductal dilation. Adrenals: No adrenal nodule. Kidneys and ureters: No hydronephrosis. No renal cystic lesion which requires follow up. No solid mass. Stomach, bowel and peritoneum: No gastric or small bowel dilation. No pathologic free fluid. Diverticulosis without evidence of diverticulitis. Focal luminal narrowing of the transverse colon with possible wall thickening spanning 2.7 cm (). Lymph nodes: No central or retroperitoneal adenopathy. Vessels: Atherosclerotic vascular calcifications. Redemonstration of infrarenal abdominal aortic aneurysm measuring 4.8 cm in maximal AP dimension, previously 4.6 cm. 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 Patent portal vein. PELVIS Reproductive organs: Unremarkable. Bladder: No abnormal wall thickening, accounting for underdistention. Pelvic lymph nodes: No pelvic adenopathy by size criteria. Bones: No aggressive osseous abnormality. Degenerative changes the spine. No vertebral body compression deformities. Other: No significant ventral or inguinal hernia. IMPRESSION: 1.No acute findings within the abdomen or pelvis to explain patient's symptoms. No acute fractures are identified. 2.Focal luminal narrowing of the transverse colon with possible wall thickening spanning 2.7 cm. This is new from prior and underlying neoplasm cannot be excluded. Recommend colonoscopy for further evaluation. 3.Infrarenal abdominal aorta is mildly increased compared to prior measuring 4.8 cm. Right common iliac artery aneurysms also mildly increased measuring 3 cm. 4.Additional chronic findings are stable compared to prior exam, as described above. Reviewed by: Abner Elizabeth MD on 09/06/2023 6:23 PM PDT Forms: PCP List Discharge Date/Time: 09/06/23 19:15
[2023-09-06 17:09] LABS: ALBUMIN 4.1 g/dL (3.2-5.5); ALBUMIN/GLOBULIN RATIO 1.6 (1.0-2.2); BILIRUBIN,TOTAL 0.3 mg/dL (0.2-1.0); CALCIUM 9.3 mg/dL (8.5-10.3); POTASSIUM 3.7 mmol/L (3.5-4.5); TOTAL PROTEIN 6.7 g/dL (6.4-8.9)
[2023-09-06 17:25] LABS: MAGNESIUM 1.5 mg/dL (1.7-2.3)
[2023-09-06] MEDS ORDERED: iohexoL-300 100 ML VIAL ONE (17:34)
--- NOTE | 2023-09-06 18:25 | CT Report ---
PROCEDURE: Abdomen/Pelvis W INDICATIONS: LLQ pain after GLF CONTRAST: Omni 300 100ml TECHNIQUE: After the administration of intravenous contrast, a CT scan of the abdomen and pelvis was performed. Images were recorded and evaluated at appropriate window settings. Reformats: coronal and sagittal. F or radiation dose reduction, the following was used: automated exposure control, adjustment of mA and /or kV according to patient size. COMPARISON: 01/05/2023 FINDINGS: Image quality: Diagnostic. Lower chest: Linear atelectasis versus scarring at the bilateral lung bases. Large hiatal hernia. Sev ere coronary calcifications. Liver: No solid mass. Gallbladder: Surgically absent. Biliary tree: No intrahepatic or extrahepatic dilation, accounting for age. Spleen: No splenomegaly. Splenule is noted. Pancreas: No pancreatic ductal dilation. Adrenals: No adrenal nodule. Kidneys and ureters: No hydronephrosis. No renal cystic lesion which requires follow up. No solid mas s. Stomach, bowel and peritoneum: No gastric or small bowel dilation. No pathologic free fluid. Diverti culosis without evidence of diverticulitis. Focal luminal narrowing of the transverse colon with poss ible wall thickening spanning 2.7 cm (2/44). Lymph nodes: No central or retroperitoneal adenopathy. Vessels: Atherosclerotic vascular calcifications. Redemonstration of infrarenal abdominal aortic aneu rysm measuring 4.8 cm in maximal AP dimension, previously 4.6 cm. 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 Patent portal vein. PELVIS Reproductive organs: Unremarkable. Bladder: No abnormal wall thickening, accounting for underdistention. Pelvic lymph nodes: No pelvic adenopathy by size criteria. Bones: No aggressive osseous abnormality. Degenerative changes the spine. No vertebral body compressi on deformities. Other: No significant ventral or inguinal hernia. IMPRESSION: 1.No acute findings within the abdomen or pelvis to explain patient's symptoms. No acute fractures ar e identified. 2.Focal luminal narrowing of the transverse colon with possible wall thickening spanning 2.7 cm. This is new from prior and underlying neoplasm cannot be excluded. Recommend colonoscopy for further eval uation. 3.Infrarenal abdominal aorta is mildly increased compared to prior measuring 4.8 cm. Right common nancy ac artery aneurysms also mildly increased measuring 3 cm. 4.Additional chronic findings are stable compared to prior exam, as described above. Reviewed by: Abner Elizabeth MD on 09/06/2023 6:23 PM PDT Approved by: Abner Elizabeth MD on 09/06/2023 6:23 PM PDT Station ID: [id number]
[2023-09-06] MEDS: HYDROmorphone 0.5 MG/0.5 ML SYRINGE IVP STA (19:00)
[2023-09-06] MEDS: ACETAMINOPHEN 325 MG TABLET PO STA (19:02)
[2023-09-06 19:20] VITALS: BP 153/86; O2SAT 100
[2023-09-06] MEDS: iohexoL-300 100 ML VIAL IVP ONE (20:38)
== END 2023-09-06 19:15 | disposition home or self-care (01) ==
LOC: ED 16:02
DX: S30.1XXA Contusion of abdominal wall, initial encounter (principal); W01.190A Fall on same level from slipping, tripping and stumbling with subsequent striking against furniture, initial encounter; R93.3 Abnormal findings on diagnostic imaging of other parts of digestive tract; I72.3 Aneurysm of iliac artery; D64.9 Anemia, unspecified; E83.42 Hypomagnesemia; I10 Essential (primary) hypertension
CPT/HCPCS: 36415; 74177; 80053; 83690; 83735; 85025; 99284; A9270; Q9967

== ENCOUNTER 2023-10-09 15:53 | Outpatient (CLI) | payer MEDICARE, OTHER | END 2023-10-09 15:54 | disposition home or self-care (01) | LOC: LAB.N 15:53 | PROVIDERS: ATTEND Urology | DX: N32.81 Overactive bladder (principal) | CPT/HCPCS: 81001 ==

== ENCOUNTER 2023-10-11 16:37 | Outpatient (CLI) | payer MEDICARE, OTHER ==
[2023-10-11 20:30] LABS: BILIRUBIN,URINE NEGATIVE (NEGATIVE); GLUCOSE, URINE (UA) NEGATIVE (NEGATIVE); KETONES,URINE (UA) NEGATIVE (NEGATIVE); LEUKOCYTE ESTERASE, URINE NEGATIVE (NEGATIVE); NITRITE,URINE NEGATIVE (NEGATIVE); OCCULT BLOOD,URINE NEGATIVE (NEGATIVE); PROTEIN,URINE NEGATIVE (NEGATIVE); UROBILINOGEN,URINE 0.2 (NORMAL) E.U./dL (NORMAL)
[2023-10-11 20:40] LABS: BACTERIA,URINE None Seen /HPF (None Seen); CLARITY,URINE CLEAR (CLEAR); RBC,URINE 0-5 /HPF (0-5); SQUAMOUS EPITHELIAL CELL,UR NONE SEEN (<= Few); WBC,URINE 0-3 /HPF (0-3)
== END 2023-10-11 16:38 | disposition home or self-care (01) ==
LOC: LAB.N 16:37
PROVIDERS: ATTEND Urology
DX: N32.81 Overactive bladder (principal)
CPT/HCPCS: 81001; 87086

== ENCOUNTER 2023-11-07 13:04 | Outpatient (CLI) | payer MEDICARE, OTHER ==
[2023-11-07] MEDS ORDERED: DIATRIZOATE MEGLU/DIATRIZO SOD 30 ML BOTTLE PO ONE (13:19)
--- NOTE | 2023-11-07 14:52 | CT Report ---
PROCEDURE: Abdomen/Pelvis WO INDICATIONS: ABD PAIN, DIARRHEA TECHNIQUE: A CT scan of the abdomen and pelvis was performed without the use of intravenous contrast. Images we re recorded and evaluated at appropriate window settings. Reformats: coronal and sagittal. For radiat ion dose reduction, the following was used: automated exposure control, adjustment of mA and/or kV ac cording to patient size. COMPARISON: CT abdomen pelvis 09/06/2023 FINDINGS: Image quality: Diagnostic. Lower chest: Linear atelectasis versus scarring. Prominent coronary calcifications. Liver: No contour-deforming mass. Gallbladder: Removed. Biliary tree: No intrahepatic or extrahepatic dilation, accounting for age. Spleen: No splenomegaly. Pancreas: No pancreatic ductal dilation. Adrenals: No adrenal nodule. Kidneys and ureters: No hydronephrosis. No contour-deforming mass. Stomach, bowel and peritoneum: No gastric or small bowel dilation. No abnormal wall thickening. No pa thologic free fluid. Large hiatal hernia. Previous narrowing within the transverse colon is not ident ified on current exam. Lymph nodes: No central or retroperitoneal adenopathy. Vessels: Infrarenal abdominal aortic aneurysm unchanged. Unchanged common iliac aneurysm. Reproductive organs: Unremarkable. Bladder: Bladder wall thickness is normal, accounting for underdistention. No calcified bladder stone s. Pelvic lymph nodes: No adenopathy by size criteria. Bones: No aggressive osseous abnormality. Other: No significant ventral or inguinal hernia. IMPRESSION: No obstruction or colonic inflammatory change. Stable abdominal aortic aneurysm as well as common iliac artery aneurysm. Reviewed by: Rosalba Thao MD on 11/07/2023 2:51 PM PDT Approved by: Rosalba Thao MD on 11/07/2023 2:51 PM PDT Station ID: [id number]
== END 2023-11-07 13:05 | disposition home or self-care (01) ==
LOC: DI 13:04
PROVIDERS: ATTEND Family Medicine
DX: R10.9 Unspecified abdominal pain (principal); R19.7 Diarrhea, unspecified; I71.40 Abdominal aortic aneurysm, without rupture, unspecified; I72.3 Aneurysm of iliac artery
CPT/HCPCS: 74176; Q9963

== ENCOUNTER 2023-11-21 14:31 | Outpatient (CLI) | payer MEDICARE, OTHER ==
--- NOTE | 2023-11-21 16:38 | DEXA Report ---
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 Regions measur ed are the AP Spine, femoral neck, and if needed forearm. COMPARISON: None FINDINGS: Lumbar Spine: Bone Mineral Density: 1.247 g/cm/cm,T score: 0.2. Left Femoral Neck: Bone Mineral Density: 0.832 g/cm/cm, T score: -1.8. Left Hip: Bone Mineral Density: 0.920 g/cm/cm,T score: -1.3. FRAX risk factors: None given. 10 year risk of major osteoporotic fracture: 8.3% major osteoporotic fracture = hip, clinical vertebral, proximal humerus, distal forearm 10 year risk of hip fracture: 3.3% (T score greater or equal to -1.0: NORMAL) (T score from -1.1 to -2.4: OSTEOPENIA) (T score less than or equal to -2.5 to: OSTEOPOROSIS) Impression: By WHO criteria, this patient has osteopenia in the femoral neck and left hip. Patients with diagnosis of osteoporosis or osteopenia should have regular bone mineral density assess ment. For those eligible for Medicare, routine testing is allowed once every 2 years. Testing frequ ency can be increased for patients who have rapidly progressing disease or for those who are receivin g medical therapy to restore bone mass. Reviewed by: Rosalba Thao MD on 11/21/2023 4:37 PM PDT Approved by: Rosalba Thao MD on 11/21/2023 4:37 PM PDT Station ID: [id number]
== END 2023-11-21 14:32 | disposition home or self-care (01) ==
LOC: DI 14:31
PROVIDERS: ATTEND Urology
DX: M85.89 Other specified disorders of bone density and structure, multiple sites (principal)

== ENCOUNTER 2023-12-04 15:07 | Outpatient (CLI) | payer MEDICARE, OTHER | END 2023-12-04 15:08 | disposition home or self-care (01) | LOC: LAB.N 15:07 | PROVIDERS: ATTEND Urology | DX: C61 Malignant neoplasm of prostate (principal) | CPT/HCPCS: 36415; 84153 ==

== ENCOUNTER 2023-12-10 08:00 | Outpatient (CLI) | payer MEDICARE, OTHER | END 2023-12-10 23:59 | disposition home or self-care (01) | LOC: LAB.N 08:00 | PROVIDERS: ATTEND Physician Assistant Medical | DX: S91.302A Unspecified open wound, left foot, initial encounter (principal) | CPT/HCPCS: 87070; 87205 ==